=== PATIENT | female | born 1955 | race Caucasian/White ===

== ENCOUNTER 2021-05-23 09:27 | Outpatient (REF) | payer MEDICARE, MEDICAID, SELFPAY ==
--- NOTE | ~2021-05-23 | XR_ITS ---
EXAMINATION: XR SHOULDER, RIGHT CLINICAL INFORMATION: Pain COMPARISON: None TECHNIQUE: Three views of the right shoulder. FINDINGS: Bone alignment is normal. No fracture or dislocation is seen. The glenohumeral joint is normal. There is mild arthritis at the acromioclavicular joint. Soft tissues are normal. XR/XR shoulder RT min 2V IMPRESSION: Mild arthritis at the acromioclavicular joint.
== END 2021-05-23 09:28 | disposition home or self-care (01) ==
LOC: HO.XRAY 09:27
PROVIDERS: Absent Provider Internal Medicine Geriatric Medicine; PCP Internal Medicine Geriatric Medicine; Visit Provider Emergency Medicine
DX: M25.511 Pain in right shoulder (principal)
CPT/HCPCS: 73030

== ENCOUNTER 2022-05-29 11:58 | Outpatient (REF) | payer MEDICARE, MEDICAID, SELFPAY ==
--- NOTE | ~2022-05-29 | MM_ITS ---
EXAMINATION: MM SCREENING DIGITAL BREAST TOMOSYNTHESIS, BILATERAL CLINICAL INFORMATION: Screening. Asymptomatic. The lifetime risk of breast cancer based on the Tyrer-Cuzick Model is 4%. COMPARISON: Mammography: 04/16/2019, 11/09/2015 TECHNIQUE: Digital breast tomosynthesis is performed in both the craniocaudal and mediolateral oblique views along with computer-aided detection (CAD). Synthesized 2D images are generated from the tomosynthesis. FINDINGS: The breasts are heterogeneously dense, which may obscure small masses (ACR BI-RADS breast composition Category c). There are no significant masses, abnormal calcifications, or other abnormalities. Parenchymal pattern is similar to prior studies. There is no developing density or architectural abnormality. The axilla and skin contours are unremarkable. No significant changes. MM/MM tomosynthesis screening BI IMPRESSION: No mammographic evidence of malignancy. ASSESSMENT: BI-RADS 1: Negative RECOMMENDATION: Routine annual mammography screening. This patient's information was entered into a reminder system with a target due date for their next mammogram.
== END 2022-05-29 11:59 | disposition home or self-care (01) ==
LOC: HO.MAMMO 11:58
PROVIDERS: PCP Internal Medicine Geriatric Medicine; Visit Provider Internal Medicine Geriatric Medicine
DX: Z12.31 Encounter for screening mammogram for malignant neoplasm of breast (principal)
CPT/HCPCS: 77063; 77067

== ENCOUNTER 2023-07-15 11:23 | Outpatient (REF) | payer MEDICARE, MEDICAID, SELFPAY ==
[2023-07-15 14:08] LABS: Alanine Aminotransferase 21 U/L (0-31); Albumin Level 4.4 g/dL (3.5-5.0); Alkaline Phosphatase 92 U/L (39-117); Anion Gap 14 (12-20); Aspartate Amino Transferase 29 U/L (5-31); Bilirubin Direct 0.2 mg/dL (0.0-0.5); Bilirubin Total 0.4 mg/dL (0.0-1.0); Blood Urea Nitrogen 10 mg/dL (9-16); Calcium 9.8 mg/dL (8.4-10.2); Carbon Dioxide 26 mmol/L (22-29); Chloride 107 mmol/L (96-108); Cholesterol 161 mg/dL (<200); Estimated Glomerular Filt Rate > 60; Glucose Random 126 mg/dL (60-115); HDL Cholesterol 52 mg/dL (>40); LDL Cholesterol Calculated 92 mg/dL (<100); Potassium 3.8 mmol/L (3.3-5.1); Sodium 143 mmol/L (135-145); Triglycerides 87 mg/dL (<150)
[2023-07-15 14:26] LABS: Vitamin D 25-OH Total 28.3 ng/mL (>30)
== END 2023-07-15 11:24 | disposition home or self-care (01) ==
LOC: HO.HHCL 11:23
PROVIDERS: Visit Provider Internal Medicine Geriatric Medicine
DX: E55.9 Vitamin D deficiency, unspecified (principal); I10 Essential (primary) hypertension; E78.2 Mixed hyperlipidemia
CPT/HCPCS: 36415; 80048; 80061; 80076; 82306

== ENCOUNTER 2023-09-10 18:20 | Outpatient (REF) | payer MEDICARE, MEDICAID, SELFPAY ==
[2023-09-10 20:14] LABS: Influenza A PCR NEGATIVE (Negative); Influenza B PCR NEGATIVE (Negative); Resp Syncy Virus RNA Qual PCR NEGATIVE (Negative); SARS COV2 PCR INHOUSE NEGATIVE (Negative)
== END 2023-09-10 18:21 | disposition home or self-care (01) ==
LOC: HO.HHCLNP 18:20
PROVIDERS: Visit Provider Emergency Medicine
DX: Z11.52 Encounter for screening for COVID-19 (principal); R68.89 Other general symptoms and signs; Z20.822 Contact with and (suspected) exposure to COVID-19
CPT/HCPCS: 0241U; 87070

== ENCOUNTER 2024-01-01 10:47 | Outpatient (REF) | payer MEDICARE, MEDICAID, SELFPAY ==
[2024-01-01 13:29] LABS: Anion Gap 13 (12-20); Blood Urea Nitrogen 16 mg/dL (9-16); Carbon Dioxide 28 mmol/L (22-29); Chloride 104 mmol/L (96-108); Estimated Glomerular Filt Rate > 60; Glucose Random 117 mg/dL (60-115); Potassium 4.2 mmol/L (3.3-5.1); Sodium 141 mmol/L (135-145)
[2024-01-01 14:09] LABS: Creatinine Urine 34.64 mg/dL; Microalbumin Urine < 5.0 mg/L
== END 2024-01-01 10:48 | disposition home or self-care (01) ==
LOC: HO.HHCL 10:47
PROVIDERS: Visit Provider Internal Medicine Geriatric Medicine
DX: E11.65 Type 2 diabetes mellitus with hyperglycemia (principal); I10 Essential (primary) hypertension
CPT/HCPCS: 36415; 80048; 82043; 82570

== ENCOUNTER 2024-05-11 08:25 | Outpatient (REF) | payer MEDICARE, MEDICAID, SELFPAY ==
[2024-05-12 04:06] LABS: ~HepC Num1 0.07 S/CO (0.00-0.79); ~Hepatitis C Antibody Nonreactive (Nonreactive)
== END 2024-05-11 08:26 | disposition home or self-care (01) ==
LOC: HO.HHCL 08:25
PROVIDERS: Visit Provider Internal Medicine Geriatric Medicine
DX: Z11.59 Encounter for screening for other viral diseases (principal)
CPT/HCPCS: 36415; 86803

== ENCOUNTER 2024-06-29 17:53 | Outpatient (REF) | payer MEDICARE, MEDICAID, SELFPAY | END 2024-06-29 17:54 | disposition home or self-care (01) | LOC: HO.HHCLNP 17:53 | PROVIDERS: Visit Provider Emergency Medicine | DX: L03.012 Cellulitis of left finger (principal) | CPT/HCPCS: 87070; 87077; 87147; 87186; 87205 ==

== ENCOUNTER 2025-01-01 09:13 | Outpatient (REF) | payer MEDICARE, MEDICAID, SELFPAY ==
--- OUTSIDE RECORDS SUMMARY | 2025-01-01 09:16 | XMS_ITS | Encounter Summary ---
Author Organization [employer] Address [address] [place] [address] Care Team Providers Care Bottom Loader Name Role Phone Name, Shekhar ROSE Primary Care Provider [phone] Nadine Almazan PharmD Unavailable [phone] Reason for Visit * Reason Comments Pre-visit Planning SDOH unable to reach LVM Encounter Details Date Type Department Care Team ([facility] st Contact Info) Description 12/17/2024 Patient Outreach [facility] [address] [place], [place] [id number] Name, MD Shekhar [address] [place] [address] Pre-visit Planning (SDOH unable to reach LVM ) Social History Tobacco Use Types Packs/Day Years Used Date Smoking Tobacco: Never Passive Smoke Exposure: Never Smokeless Tobacco: Never Alcohol Use Standard Drinks/Week Comments Never 0 (1 standard drink = 0.6 oz pur e alcohol) Alcohol Answer Date Recorded Frequency of Alcohol Consumption Not on file 04/15/2024 Average Number of Drinks Not on file 024 Frequency of Binge Drinking Not on file 03/28 Score 0 04/15/2024 Depression Answer Date Recorded Patient Health Questionnaire-9 Score 0 07/15/2023 Housing Stability Answer Date Recorded What is your housing situation today? I have jaylene roy 08/22/[address] you li ve. Do you have problems with any of the following? None of the above 08/22/2023 Food Insecurity Answer Date Recorded Within the past 12 months, y ou worried that your food would run out before you got money to buy more: Never True 08/22/2023 Within the past 12 months,th e food you bought just didn't last and you didn't have enough money to get more: Never True Transportation Answer Date Recorded In the past 12 months, has l ack of transportation kept you from medical appts, meetings, work or from getting things needed for daily living? No 08/22/2023 Utilities Answer Date Recorded In the past 12 months, has t he electric, gas, oil or water company threatened to shut off services in your home? No 08/22/2023 Depression Answer Date Recorded Patient Health Questionnaire-2 Score 0 07/15/2023 Comments Unknown Sex and Gender Information Value Date Recorded Sex Assigned at Female 08/26/2022 10:17 AM EDT Legal Sex Female 10:17 AM EDT Gender Identity Female 08/26/2022 10:17 AM EDT Sexual Orientation Straight 08/26/2022 10 :17 AM EDT documented as of this encounter Progress Notes * Rylee Ordoñez - 12/17/2024 4:11 PM EST JOHANA Johnson placed outbound call to patient to complete pre-visit planning. No answer at this time. Patient name and were not confirmed. CC left voicemail requesting return call. Direct contactinformation provided. documented in this encounter Plan of Treatment Not on file documented as of this encounter Goals Goal Patient Goal Type Associated Problems Recent Progress Patient-Stated? Author Record your blood pressure periodically, as directed Blood Pressure Worsening(08/2023 1:29 PM EST) No Puia, Nadine, PharmD Blood Pressure < 140/90 Blood Pressure 126/79(2024 3:33 PM EST) No Puia, Nadine, PharmD Hemoglobin A1c < 7 Result Component 6.6( 3:22 PM EST) No Puia, Nadine, PharmD Record your blood sugar as directed Result Component Worsening(08/2023 1:29 PM EST) No Puia, Nadine, PharmD documented as of this encounter Visit Diagnoses Not on filedocumented in this encounter Additional Health Concerns Assessment Noted Time PHQ-9 Depression Total Score: 0 09/19/20 23 10:32 AM EDT documented as of this encounter Care Teams Bottom Loader Relationship Specialty Start Date End Date Name, MD Shekhar [address] [place] [address] PCP - General Family Medicine 08/12/18 Nadine Almazan PharmD [address] [place] [address] Pharmacist Internal Medicine 10/30/21 documented as of this encounter
--- OUTSIDE RECORDS SUMMARY | 2025-01-01 09:16 | XMS_ITS | Encounter Summary ---
Author Organization [employer] Address [address] [facility] [address] [place] [id number] Care Team Providers Care Coin Teller Name Role Phone Name, Shekhar ROSE Primary Care Provider [phone] Nadine Almazan PharmD Unavailable [phone] Encounter Details Date Type Department Care Team (Late st Contact Info) Description 09/13/2022 Abstract [facility] [address] [place] [address] Provider, MD Anthony Social History Tobacco Use Types Packs/Day Years Used Date Smoking Tobacco: Never Assessed Comments Unknown Sex and Gender Information Value Date Recorded Sex Assigned at Female 08/26/2022 10:17 AM EDT Legal Sex Female 10:17 AM EDT Gender Identity Female 08/26/2022 10:17 AM EDT Sexual Orientation Straight 08/26/2022 10 :17 AM EDT documented as of this encounter Plan of Treatment Not on file documented as of this encounter Visit Diagnoses Not on filedocumented in this encounter Care Teams Coin Teller Relationship Specialty Start Date End Date Name, MD Shekhar [address] [place] [address] PCP - General Family Medicine 08/12/18 Nadine Almazan, PharmD [address] [place] [address] Pharmacist Internal Medicine 10/30/21 documented as of this encounter
--- OUTSIDE RECORDS SUMMARY | 2025-01-01 09:16 | XMS_ITS | Encounter Summary ---
Author Organization [employer] Address [address] [place] [address] Care Team Providers Care Chart Snatcher Name Role Phone Name, Shekhar ROSE Primary Care Provider [phone] Nadine Almazan PharmD Unavailable [phone] Encounter Details Date Type Department Care Team ([facility] st Contact Info) Description 12/29/2024 Telephone [facility] [address] [place] [address] Kelly Clements, RN Social History Tobacco Use Types Packs/Day Years [...] AM EDT documented as of this encounter Miscellaneous Notes * Telephone Encounter - Kelly Clements RN - 12/29/2024 10:33 AM EST Tc to [facility] per PCP Patient came with her daughter that is one of our [facility]. She has difficultieswalking due to knee pain. Her daughter tells me that patient sometimes needs help with dressing andwith work around the house. Patient is interested in applying for MANAGER RADIO services at home to have somehelp around the house. Can you please call [employer] at to see if they can do evaluation? No answer, lvm to return call and ask to speak to [place] team nurses. * Telephone Encounter - Kelly Clements RN - 12/29/2024 10:33 AM EST ----- Message from Shekhar Rhodes MD sent at 12/28/2024 5:20 PM EST ----- Patient came with her daughter that is one of our [facility]. She has difficulties walking due to knee pain. Her daughter tells me that patient sometimes needs help with dressing and with work around the house. Patient is interested in applying for MANAGER RADIO services at home to have some help around the house. Can you please call [employer] at to see if they can do evaluation? documented in this encounter Plan of Treatment [...] Noted Time PHQ-9 Depression Total Score: 0 07/15/20 23 10:32 AM EDT documented as of this encounter Care Teams Chart Snatcher Relationship Specialty Start Date End Date Name, MD Shekhar [address] [place] [address] PCP - General Family Medicine 08/12/18 Nadine Almazan, PharmD [address] [place] [address] Pharmacist Internal Medicine 10/30/21 documented as of this encounter
--- OUTSIDE RECORDS SUMMARY | 2025-01-01 09:16 | XMS_ITS | Encounter Summary ---
Author Organization [employer] Address [address] [facility] [address]t [place] [address] Care Team Providers Care Punch Press Operator Helper Name Role Phone Name, Shekhar ROSE Primary Care Provider [phone] Nadine Almazan PharmD Unavailable [phone] Reason for Referral * Imaging (Routine) - Authorized Specialty Diagnoses / Procedures Referred By Contac t Referred To Contact Radiology Diagnoses Encounter for screening mammogram for malignant neoplasm of breast Procedures BI Mammogram Screening Tomosynthesis Bilateral NameShekhar MD [address] [place] [address] Phone: tel: fax: [address] Phone: tel: fax: Referral ID Status Reason Start Date Expiration Date V isits Requested Visits Authorized [id number] Authorized 12/28/2024 12/28/2025 1 1 Reason for Visit * Reason Comments Diabetes Encounter Details Date Type Department Care Team (Late st Contact Info) Description 12/28/2024 3:15 PM EST Office Visit [facility] [address] [place] [phone] Shekhar Rhodes MD [address] [place], [place] [phone] Hypertension, unspecified type (Primary Dx); Type 2 diabetes mellitus with hyperglycemia, without long-term current use of insulin ([facility]/HCC); Herpes labialis; Chronic knee pain, unspecified laterality; Encounter for screening mammogram for malignant neoplasm of breast; Encounter for immunization Social History Tobacco Use Types Packs/Day Years Used Date Smoking Tobacco: Never Passive Smoke Exposure: Never Smokeless Tobacco: Never Tobacco Cessation:Counseling Given: Not Answered Alcohol Use Standard Drinks/Week Comments Never 0 [...] your housing situation today? I have jaylene kirill 08/22/[address] you li [...] AM EDT documented as of this encounter Last Filed Vital Signs Vital Sign Reading Time Taken Comments Blood Pressure 126/79 12/28/2024 3:33 PM EST Pulse 82 12/28/2024 3:19 PM EST Temperature 36.7 ??C (98.1 ??F) 12/28/2024 3:19 PM ES T Respiratory Rate 14 12/28/2024 3:19 PM EST Oxygen Saturation 98% 12/28/2024 3:19 PM EST Inhaled Oxygen Concentration - - Weight 69.5 kg (153 lb 3.2 oz) 12/28/2024 3:19 P M EST Height 157.5 cm (5' 2 ) 12/28/2024 3:19 PM EST Body Mass Index 28.02 12/28/2024 3:19 PM EST documented in this encounter Progress Notes * Shekhar Rhodes MD - 12/28/2024 3:15 PM EST Subjective Patient ID: Carmen Rehman is a 69 y.o. female who presents for Diabetes. Patient comes for a follow-up visit. She is accompanied by her daughter. She is asymptomatic. She tells me she has been using her medications regularly. She continues to have a liberal diet. Today BPwas initially elevated but repeat BP was much better. She does not bring her glucose meter but blood sugar has improved based on her hemoglobin A1c today of 6.6. She has difficulties walking due to knee pain. She tells me she was diagnosed with knee osteoarthritis in the past. Her daughter tells me that patient sometimes needs help with dressing and with workaround the house. Patient is interested in applying for MATH TEACHER services at home to have some help around the house. Review of Systems Constitutional: Negative for chills and fever. HENT: Negative for sore throat. Respiratory: Negative for cough, shortness of breath and wheezing. Cardiovascular: Negative for chest pain, palpitations and leg swelling. Gastrointestinal: Negative for abdominal pain. 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 This is a recurrent problem for her for many years. She has requested prescription for acyclovir to have at home if needed for recurrent labial herpes outbreak. The patient's lips are normal by the time of her visit today. Visit Vitals BP 126/79 Pulse 82 Temp 98.1 ??F (36.7 ??C) (Temporal) Resp 14 Ht 5' 2 (1.575 m) Wt 153 lb 3.2 oz (69.5 kg) SpO2 98% BMI 28.02 kg/m?? Smoking Status Never BSA 1.74 m?? Objective Physical Exam Constitutional: Appearance: Normal appearance. Cardiovascular: Rate and Rhythm: Normal rate and regular rhythm. Heart sounds: No murmur heard. No gallop. Pulmonary: Effort: Pulmonary effort is normal. No respiratory distress. Breath sounds: Normal breath sounds. No wheezing. Musculoskeletal: Right lower leg: No edema. Left lower leg: No edema. Comments: Antalgic gait Neurological: Mental Status: She is alert. Assessment/Plan Diagnoses and all orders for this visit: Hypertension, unspecified type Comments: Continue current dose of losartan and amlodipine. Check fasting blood work listed below. Orders: - Comprehensive Metabolic Panel; Future - Lipid Panel, Standard; Future - Albumin, Random Urine W/Creatinine; Future Type 2 diabetes mellitus with hyperglycemia, without long-term current use of insulin ([facility]) Comments: Continue current dose of Farxiga, check fasting blood work. She is reminded to avoid sweets and soda. She is encouraged to walk after meals. Orders: - POCT Glucose - POCT HGB A1C - Comprehensive Metabolic Panel; Future - Lipid Panel, Standard; Future - Albumin, Random Urine W/Creatinine; Future Herpes labialis Comments: She was prescribed acyclovir to use as needed at the first time of labial herpes outbreak. Orders: - Comprehensive Metabolic Panel; Future - Lipid Panel, Standard; Future - Albumin, Random Urine W/Creatinine; Future Chronic knee pain, unspecified laterality Comments: I suspect secondary to DJD. I recommended acetaminophen as needed check x-rays. I will message teamnurses to see if we can get some hours of MATH TEACHER help at home for her. Orders: - XR Knee 4+ Views Right; Future - XR Knee 4+ Views Left; Future Encounter for screening mammogram for malignant neoplasm of breast - BI Mammogram Screening Tomosynthesis Bilateral; Future Encounter for immunization - PCV-20 VACCINE 6 wks + Other orders - acyclovir (Zovirax) 400 MG tablet; Take 1 tablet (400 mg) by mouth 3 times daily for 10 days. documented in this encounter Plan of Treatment Scheduled Orders Name Type Priority Associated Diagnoses Orde r Schedule Comprehensive Metabolic Panel Lab Routine Type 2 diabetes mellitus with hyperglycemia, without long-term current use of insulin ([facility]) Hypertension, unspecified type Herpes labialis Expected: 12/28/2024 (Approximate), Expires: 12/28/2025 Lipid Panel, Standard Lab Routine Type 2 diabetes mellitus with hyperglycemia, without long-term current use of insulin ([facility]) Hypertension, unspecified type Herpes labialis Expected: 12/28/2024 (Approximate), Expires: 12/28/2025 Albumin, Random Urine W/Creatinine Lab Routine Type 2 diabetes mellitus with hyperglycemia, without long-term current use of insulin ([facility]) Hypertension, unspecified type Herpes labialis Expected: 12/28/2024 (Approximate), Expires: 12/28/2025 BI Mammogram Screening Tomosynthesis Bilateral Imaging Routine Encounter for screening mammogram for malignant neoplasm of breast Expected: 12/28/2024, Expires: 02/27/2026 XR Knee 4+ Views Right Imaging Routine Chronic knee pain, unspecified laterality Expected: 12/28/2024, Expires: 12/28/2025 XR Knee 4+ Views Left Imaging Routine Chronic knee pain, unspecified laterality Expected: 12/28/2024, Expires: 12/28/2025 documented as of this encounter Goals Goal Patient Goal Type Associated Problems Recent Progress Patient-Stated? Author Record your blood pressure periodically, as directed Blood Pressure Worsening(08/2023 1:29 PM EST) No Nadine Almazan, PharmD Blood Pressure < 140/90 Blood Pressure 126/79(2024 3:33 PM EST) No Nadine Almazan, PharmD Hemoglobin A1c < 7 Result Component 6.6( 3:22 PM EST) No Nadine Almazan, PharmD Record your blood sugar as directed Result Component Worsening(08/2023 1:29 PM EST) No Kevon Almazanyssa, PharmD documented as of this encounter Procedures Procedure Name Priority Date/Time Associated Diagnosis Comments POCT GLYCATED HEMOGLOBIN, TOTAL Routine 12/28/2024 3:22 PM EST Type 2 diabetes mellitus with hyperglycemia, without long-term current use of insulin ([facility]) POCT GLUCOSE Routine 12/28/2024 3:21 PM EST Type 2 diabetes mellitus with hyperglycemia, without long-term current use of insulin ([facility]) documented in this encounter Results * (ABNORMAL) POCT HGB A1C (12/28/2024 3:22 PM EST) Hemoglobin A1C 6.6(A) 4.0 - 6.0 % QC Media Lot # [id number] Lot# Expiration Date [id number] Blood 12/28/2024 3:22 PM EST us Shekhar Rhodes MD POINT OF CARE TEST ENTER/EDIT OR DERABLES Final Result * POCT Glucose (12/28/2024 3:21 PM EST) Glucose Blood, POC 139 60 - 200 mg/dL QC Media Lot # [id number] Lot# Expiration Date [id number] Blood Capillary blood specimen / Unknown 12/28/2024 3:21 PM EST us Shekhar Rhodes MD POINT OF CARE TEST ENTER/EDIT OR DERABLES Final Result documented in this encounter Visit Diagnoses Diagnosis Hypertension, unspecified type- Primary Type 2 diabetes mellitus with hyperglycemia, without long-term current use of insulin ([facility]) Herpes labialis Herpes simplex without mention of complication Chronic knee pain, unspecified laterality Encounter for screening mammogram for malignant neoplasm of breast Encounter for immunization documented in this encounter Additional Health Concerns Assessment Noted Time PHQ-9 Depression Total Score: 0 07/15/20 23 10:32 AM EDT documented as of this encounter Care Teams Punch Press Operator Helper Relationship Specialty Start Date End Date Name, MD Shekhar [address] [place] [id number] PCP - General Family Medicine 08/12/18 Nadine Almazan PharmD [address] [place] [address] Pharmacist Internal Medicine 10/30/21 documented as of this encounter
--- OUTSIDE RECORDS SUMMARY | 2025-01-01 09:16 | XMS_ITS | Encounter Summary ---
Author Organization [employer] Address [address] [place] [address] Care Team Providers Care Exotic Dancer Name Role Phone Name, Shekhar ROSE Primary Care Provider Nadine Almazan PharmD Unavailable [phone] Reason for Visit * Reason Onset Date Comments triage 03/17/2023 Encounter Details Date Type Department Care Team ([facility] st Contact Info) Description 03/17/2023 Telephone [facility] [address] [place], [place] [phone] Name, MD Shekhar [address] [place] [address] triage Social History Tobacco Use Types Packs/Day Years Used Date Smoking Tobacco: Never Assessed Comments Unknown Sex and Gender Information Value Date Recorded Sex Assigned at Female 08/26/2022 10:17 AM EDT Legal Sex Female 10:17 AM EDT Gender Identity Female 08/26/2022 10:17 AM EDT Sexual Orientation Straight 08/26/2022 10 :17 AM EDT COVID-19 Exposure Response Date Recorded In the last 10 days, have yo u been in contact with someone who was confirmed or suspected to have Coronavirus/COVID-19? No / Unsure 03/17/2023 1:43 PM EDT documented as of this encounter Miscellaneous Notes * Telephone Encounter - Jazmine Rodriguez RN - 03/17/2023 1:43 PM EDT Triage call with [employer] [place] [id number] Pt reports upper lip has some swelling and blisters have developed which are almost up to the nose and on the sides of lip. Pt reports this started 03/16 with sneezing and wiping of nose due to allergies. Pt has had this before and was treated with good effect. Pt is advised to come to [facility] today to be seen and Pt agrees with disposition and home care reviewed. Protocol Used: Mouth Symptoms (Adult) Protocol-Based Disposition: See in Office or Video Visit within 3 Days Video visit not offered Positive Triage Question: * Patient wants to be seen * All higher-acuity triage questions were negative Care Advice Discussed: * Reassurance and Education - Chapped Lips * Chapped Lips - Causes * Chapped Lips - Treatment and Prevention * Expected Course * Reasons To Call Back - You become worse * Telephone Encounter - Amando Ordoñez - 03/17/2023 12:49 PM EDT Symptoms: Lip Swelling, Cough Outcome: Schedule an urgent appointment (within 4 hours) or talk to a nurse or provider soon Reason: Getting worse The caller accepted this outcome documented in this encounter Plan of Treatment Not on file documented as of this encounter Visit Diagnoses Not on filedocumented in this encounter Care Teams Exotic Dancer Relationship Specialty Start Date End Date Name, MD Shekhar [address] [place] [address] PCP - General Family Medicine 08/12/18 Nadine Almazan PharmD [address] [place] [address] Pharmacist Internal Medicine 10/30/21 documented as of this encounter
--- OUTSIDE RECORDS SUMMARY | 2025-01-01 09:17 | XMS_ITS | Encounter Summary ---
Author Organization [employer] Address [address] [facility] [address] [place] [address] Care Team Providers Care Utility Repairer Name Role Phone Name, Shekhar ROSE Primary Care Provider [phone] Nadine Almazan PharmD Unavailable [phone] Encounter Details Date Type Department Care Team ([facility] st Contact Info) Description 12/29/2024 Telephone [facility] [address] [place] [address] Kelly Clements, RN Social History Tobacco Use [...] Encounter - Kelly Clements RN - 12/29/2024 9:24 AM EST Tc to Jj per PCP Patient came with her daughter that is one of our [facility]. She has difficultieswalking due to knee pain. Her daughter tells me that patient sometimes needs help with dressing andwith work around the house. Patient is interested in applying for INCIDENT COMMANDER services at home to have somehelp around the house. Can you please call [employer] at to see if they can do evaluation? . No answer, lvm to return call and ask to speak to goleta team nurses. * Telephone Encounter - Kelly Clements RN - 12/29/2024 9:24 AM EST ----- Message from Shekhar Rhodes MD sent at 12/28/2024 5:20 PM EST ----- Patient came with her daughter that is one of our [employer] [facility]. She has difficulties walking due to knee pain. Her daughter tells me that patient sometimes needs help with dressing and with work around the house. Patient is interested in applying for INCIDENT COMMANDER services at home to have some help around the house. Can you please call [employer] at to see if they can do [...] Result Component Worsening(08/2023 1:29 PM EST) No PuiaKevonNadine, PharmD documented as of this encounter Visit Diagnoses Not on filedocumented in this encounter Additional Health Concerns Assessment Noted Time PHQ-9 Depression Total Score: 0 07/15/20 23 10:32 AM EDT documented as of this encounter Care Teams Utility Repairer Relationship Specialty Start Date End Date Name, MD Shekhar [address] [place] [address] PCP - General Family Medicine 08/12/18 Nadine Almazan, PharmD [address] [place] [address] Pharmacist Internal Medicine 10/30/21 documented as of this encounter
--- OUTSIDE RECORDS SUMMARY | 2025-01-01 09:17 | XMS_ITS | Encounter Summary ---
Author Organization [email or web address] Address 75 [facility] 7t [place] [address] Care Team Providers Care Brake Lining Curer Name Role Phone Name, Shekhar ROSE Primary Care Provider [phone] Nadine Almazan PharmD Unavailable [phone] Encounter Details Date Type Department Care Team (Late st Contact Info) Description 03/27/2023 Abstract [facility] MED[facility]INE [address] [place] [address] Name, MD Shekhar [address] [place] [address] Social History Tobacco Use Types Packs/Day Years [...] was confirmed or suspected to have Coronavirus/COVID-19? Unable to assess 03/28/2023 3:18 PM EDT documented as of this encounter Plan of Treatment Not on file documented as of this encounter Goals Goal Patient Goal Type Associated Problems Recent Progress Patient-Stated? Author Record your blood pressure periodically, as directed Blood Pressure Worsening(09/26 1:29 PM EST) No Puia, Nadine, PharmD documented as of this encounter Procedures Procedure Name Priority Date/Time Associated Diagnosis Comments COLONOSCOPY Routine 12/14/2019 3:35 PM EST documented in this encounter Results * Hm Colonoscopy (12/14/2019 3:35 PM EST) Colonoscopy Normal Normal Narrative Anu Del Cid - 12/14/2019 3:35 PM EST Recommend 3 year follow up us Historical Provider HEALTH MAINTENANCE Final Result documented in this encounter Visit Diagnoses Not on filedocumented in this encounter Care Teams Brake Lining Curer Relationship Specialty Start Date End Date Name, MD Shekhar [address] [place], [place] [phone] PCP - General Family Medicine 08/12/18 Nadine Almazan PharmD [address] [place] [address] Pharmacist Internal Medicine 10/30/21 documented as of this encounter
--- OUTSIDE RECORDS SUMMARY | 2025-01-01 09:17 | XMS_ITS | Clinical Summary ---
Author Organization [employer] Address 75 [facility] 7t [place] [address] Care Team Providers Care Petroleum Refinery Worker Name Role Phone Name, Shekhar ROSE Primary Care Provider [phone] Nadine Almazan PharmD Unavailable [phone] Allergies Active Allergy Reactions Criticality Noted Date Comments Latex Rash Low 01/28/2024 Metformin Abdominal Pain 04/15/2024 Penicillin V Other reaction(s): unspecified Medications Blood Glucose Monitoring Suppl (FreeStyle Lite) deviceIndication s:Diabetes mellitus type 2 in obese Inject 1 each under the skin Once daily. Use to test blood sugar once daily as directed 1 each 3 Active Blood Pressure Monitor kitIndications:H ypertension, unspecified type Use to check blood pressure daily 1 kit 3 Active Ventolin HFA 108 (90 Base) MCG/ACT inhalerIndicatio ns:Intermittent asthma without complication, unspecified asthma severity TAKE 2 PUFFS BY MOUTH EVERY 4 TO 6 HOURS NEEDED 18 g 2 3 Active Spacer/Aero-Hold ing Chambers (OptiChamber Grace) misc 1 each every 4 (four) hours if needed (asthma). 1 each 3 Active Diclofenac Sodium (Voltaren) 1 % gelIndications:T ype 2 diabetes mellitus with hyperglycemia, without long-term current use of insulin ([facility]) Apply once a day to the affected foot 100 g 2 3 Active fluticasone (Flonase) 50 MCG/ACT nasal spray USE 1 SPRAY IN EACH NOSTRIL DAILY SHAKE GENTLY 16 g 2 4 Active losartan (Cozaar) 25 MG tabletIndication s:Type 2 diabetes mellitus with hyperglycemia, without long-term current use of insulin ([facility]),Hypert ension, unspecified type Take 1 tablet (25 mg) by mouth in the morning. 30 tablet 11 4 Active amLODIPine (Norvasc) 5 MG tabletIndication s:Hypertension, unspecified type Take 1 tablet (5 mg) by mouth at bedtime. 30 tablet 11 4 Active dapagliflozin (Farxiga) 10 MG Take 1 tablet (10 mg) by mouth Once per day. 30 tablet 11 4 04/15/20 25 Active cholecalciferol (Vitamin D-3) 25 MCG tabletIndication s:Vitamin D deficiency TAKE 1 TABLET BY MOUTH AT BEDTIME 90 tablet 3 4 Active cetirizine (ZyrTEC) 10 MG tabletIndication s:Seasonal allergic rhinitis due to pollen TAKE 1 TABLET BY MOUTH AT BEDTIME 90 tablet 3 4 Active Easy Touch Lancets 33G/Twist misc USE DIRECTED TO TEST BLOOD SUGAR ONCE DAILY 100 each 11 4 Active FREESTYLE LITE test strip USE DIRECTED TO TEST BLOOD SUGAR ONCE DAILY 50 strip 11 4 Active Acetaminophen 500 MG capsuleIndicatio ns:Acute non intractable tension-type headache Take two tablets as needed for fever or pain every 6 hours 40 capsule 4 Active atorvastatin (Lipitor) 20 MG tablet TAKE 1 TABLET BY MOUTH AT BEDTIME 30 tablet 11 4 Active acyclovir (Zovirax) 400 MG tablet Take 1 tablet (400 mg) by mouth 3 times daily for 10 days. 30 tablet 2 5 01/08/20 25 Active Active Problems Problem Noted Date Diagnosed Date Herpes labialis 12/28/2024 Type 2 diabetes mellitus, wi thout long-term current use of insulin 03/09/2019 Vitamin D deficiency 02/22/2019 Asthma 11/17/2018 Hypertensive disorder 09/14/2018 Knee pain 08/12/2018 Hyperlipidemia 08/07/2012 Allergic rhinitis 08/07/2012 Gastroesophageal reflux disease 08/07/2012 Encounters Date Type Department Care Team Description 12/29/2024 Telephone [facility] [address] [place] [phone] Kelly Clements, JACKIE 12/29/2024 Telephone [facility] [address] [place] [phone] Kelly Clements RN 12/28/2024 3:15 PM EST Office Visit [address] [address] Shekhar Rhodes MD Hypertension, unspecified type (Primary Dx); Type 2 diabetes mellitus with hyperglycemia, without long-term current use of insulin ([facility]); Herpes labialis; Chronic knee pain, unspecified laterality; Encounter for screening mammogram for malignant neoplasm of breast; Encounter for immunization 12/17/2024 Patient Outreach [facility] [address] [place], [place] [phone] Shekhar Rhodes MD Pre-visit Planning ([facility] unable to reach [facility] ) 10/28/2024 Telephone [facility] [address] [place] [address] Judi Valle [place] Chart Prep 10/08/2024 Patient Outreach [address] [address] Shekhar Rhodes MD Medicare Annual Wellness Visit Initial (AWV unscheduled) from Last 3 Months Immunizations Name Administration Dates Next Due Hep B, adult 02/24/2024(Deferred: Patient Ref used) Influenza High-dose Quadriva lent Preservative Free 07/23/2023,09/05/2022 Influenza, High Dose Seasona l, Preservative Free 11/08/2019 Influenza, IIV3, injectable 08/15/2011 Influenza, Split (incl. kristopher fied surface antigen) 07/01/2013,08/07/2012 Pfizer Covid-19 Vaccine 12+ 10/01/2023,,07/04/2021 Pfizer Covid-19 Vaccine 12+ Bivalent 09/05/2022 Pneumococcal Conjugate PCV 13 11/08/2019 Pneumococcal Conjugate PCV 20 12/28/2024 Pneumococcal Polysaccharide PPSV23 01/28/2017 RSV Bivalent 02/24/2024(Deferred: Patient Ref used) TD (adult), 2 Lf tetanus tox oid, preservative free, adsorbed 05/12/2007 Tdap 06/25/2023,06/18/2013,11/04/2012 Family History Medical History Relation Name Comments Hyperlipidemia Mother Hypertension Mother Relation Name Status Comments Mother Social History Tobacco Use Types Packs/Day Years [...] Orientation Straight 08/26/2022 10 :17 AM EDT Last Filed Vital Signs Vital Sign Reading [...] Mass Index 28.02 12/28/2024 3:19 PM EST Plan of Treatment Health Maintenance Due Date Last Done Comments CT Colonography 1953 Dental Prophylaxis 1955 FIT DNA/Cologuard 1955 FIT 1955 FOBT 1955 Sigmoidoscopy 1955 Zoster Vaccines (1 of 2) 2003 RSV Patients and Patients Aged 60 years or older (1 - Risk 60-74 years 1-dose series) 2013 Colonoscopy 12/14/2022 12/14/2019 Colorectal Cancer Screening 12/14/2022 Mammogram 05/29/2024 05/29/2022, 04/20/2019 COVID-19 Vaccine ( season) 2024 10/01/2023, 09/05/2022, 07/25/2021, Additional history exists Influenza Vaccine (#1) 2024 , 09/05/2022, 11/08/2019, Additional history exists Depression Screening 07/15/2024 07/15/2023, 07/15/20 23 Lipid Panel 07/15/2024 07/15/2023, 08/28, 05/15/2022 SDOH Screening 07/15/2024 07/15/2023 Dental Oral Exam 07/30/2024 01/28/2024, 08/19/2018 Diabetes: Foot Exam 09/29/2024 09/29/2023, 09/29/2023, 09/29/2023, Additional history exists Diabetes: Urine Protein Screening 12/31/2024 01/01/2024, 11/20/2019 Dental X-Ray: Bitewings 01/28/2025 01/28/2024, 08/19 Alcohol/Substance Use Screening 04/15/2025 04/15/2024 Diabetes: Hemoglobin A1C 06/30/2025 025, 04/15/2024, 01/01/2024, Additional history exists Eye Exam 08/28/2025 08/28/2023, 11/2022, 08/28/2023, Additional history exists Tobacco Screening 12/28/2025 12/28/2024 Dental X-Ray: Full Mouth 01/28/2027 024, 06/17/2022, 08/19/2018 DTaP/Tdap/Td Vaccines (4 - Td or Tdap) 06/25/2033 06/25/2023, 06/18/2013, 11/04/2012, Additional history exists Hepatitis C Screening Completed 05/11/2024 Pneumococcal Vaccine: 50+ Years Completed 12/28/2024, 11/08/2019, 01/28/2017 HIB Vaccines Aged Out No longer eligi ble based on patient's age to complete this topic HPV Vaccines Aged Out No longer eligi ble based on patient's age to complete this topic Hepatitis A Vaccines Aged Out No long er eligible based on patient's age to complete this topic Hepatitis B Vaccines Aged Out No long er eligible based on patient's age to complete this topic IPV Vaccines Aged Out No longer eligi ble based on patient's age to complete this topic Meningococcal Vaccine Aged Out No stan janeth eligible based on patient's age to complete this topic RSV under 20 months Aged Out No longe r eligible based on patient's age to complete this topic Rotavirus Vaccines Aged Out No longer eligible based on patient's age to complete this topic Goals Goal Patient Goal Type Associated Problems [...] 1:29 PM EST) No Puia, Nadine, PharmD Procedures Procedure Name Priority Date/Time Associated Diagnosis Comments POCT GLYCATED HEMOGLOBIN, TOTAL Routine 12/28/2024 3:22 PM EST Type 2 diabetes mellitus with hyperglycemia, without long-term current use of insulin (CMS/HCC) POCT GLUCOSE Routine 12/28/2024 3:21 PM EST Type 2 diabetes mellitus with hyperglycemia, without long-term current use of insulin (CMS/HCC) HEPATITIS C AB W/REFL TO HCV RNA, QN, PCR Routine 05/11/2024 8:27 AM EDT Need for hepatitis C screening test INTRAORAL - COMPLETE SERIES OF RADIOGRAPHIC IMAGES Routine 01/28/2024 11:30 AM EDT Symptomatic irreversible pulpitis Periodontal disease Dental caries PERIODIC ORAL EVALUATION - ESTABLISHED PATIENT Routine 01/28/2024 11:30 AM EDT Symptomatic irreversible pulpitis Periodontal disease Dental caries ALBUMIN, RANDOM URINE W/CREATININE Routine 01/01/2024 10:50 AM EST Type 2 diabetes mellitus with hyperglycemia, without long-term current use of insulin (CMS/[facility]) Hypertension, unspecified type LIPID PANEL, STANDARD Routine 07/15/2023 11:26 AM EDT MAMMOGRAM GENERIC Routine 05/29/2022 12: 18 PM EDT HM COLONOSCOPY Routine 12/14/2019 3:35 PM EST from Last 3 Months or Most Recently Relevant to Health Maintenance Results * (ABNORMAL) POCT HGB A1C (12/28/2024 3:22 PM EST) Hemoglobin A1C 6.6(A) 4.0 - 6.0 % QC Media Lot # [id number] Lot# Expiration Date [id number] Blood 12/28/2024 3:22 PM EST us Shekhar Name POINT OF CARE TEST ENTER/EDIT OR DERABLES Final Result * POCT Glucose (12/28/2024 3:21 PM EST) Glucose Blood, POC 139 60 - 200 mg/dL QC Media Lot # [id number] Lot# Expiration Date [id number] Blood Capillary blood specimen / Unknown 12/28/2024 3:21 PM EST Result Susan Rhodes MD POINT OF CARE TEST ENTER/EDIT OR DERABLES Final Result * Hepatitis C Antibody with Reflex to HCV, RNA, Quantitative, Real-Time PCR (05/11/2024 8:27 AM EDT) Pathologist [facility] Hepatitis C Antibody Nonreactive Nonreactive [facility] Comment:Antibodies to HCV no t detected; does not exclude early acuteHCV infection. Blood Venous blood specimen / Unknown 05/11/2024 8:27 AM EDT 05/11/2024 11:28 AM EDT us Shekhar Rhodes MD LAB BLOOD ORDERABLES Final Resul t Performing Organization Address City/[facility] Co de Phone Number [facility] [address] [place] [phone] * Albumin, Random Urine W/Creatinine (01/01/2024 10:50 AM EST) Pathologist [facility] Creatinine, Urine 34.64 mg/dL [facility] Microalbumin Urine <5.0 mg/L [facility] Microalbum Creatinine Ratio Ur TNP <30 ug/mg cr [facility] Comment:Unable to calculate albumin/creatinine ratio due to lowmicroalbumin or creatinine result. Urine (Urine, Random) 01/01/2024 10:50 AM EST 01/01/2024 12:56 PM EST us Shekhar Rhodes MD LAB URINE ORDERABLES Final Resul t Performing Organization Address City/[facility] Co de Phone Number [facility] [address] [place] [phone] * Lipid Panel, Standard (07/15/2023 11:26 AM EDT) Triglycerides 87 <150 mg/dL [facility] Comment:Desirable Triglyceri de: less than 150 mg/dLBorderline High Triglyceride 150-199 mg/dLHigh Triglyceride: 200-499 mg/dLVery High Triglyceride: greater than or equal to 5OO mg/dL Cholesterol 161 <200 mg/dL [facility] Comment:Desirable Cholestero l: less than 200 mg/dLBorderline High Cholesterol: 200-239 mg/dLHigh Cholesterol: greater than 239 mg/dL LDL Cholesterol Calculated 92 <100 mg/dL [facility] Comment:Desirable LDL: less than 100 mg/dLNear Optimal/Above Optimal LDL: 110- 129 mg/dLBorderline High LDL: 130-159 mg/dLHigh LDL: 160-189 mg/dLVery High LDL: greater than or equal to 190 mg/dL HDL Cholesterol 52 >40 mg/dL [facility] Comment:Desirable HDL: great er than 40 mg/dL Note: This HDL assay may give artificially low results in patients with liver disease. 07/15/2023 11:2 6 AM EDT 07/15/2023 1:27 PM EDT us Shekhar Rhodes MD LAB BLOOD ORDERABLES Final Resul t [facility] [address] [place] [phone] * Mammography Report 1 (05/29/2022 12:18 PM EDT) Anatomical Region Laterality Modality Breast Bilateral Mammography 05/29/2022 12:1 8 PM EDT Narrative 05/30/2022 1:27 PM EDT Refer to the Notes tab for result details [facility] Procedure: Mammography Report 1 Procedure Note Provider, MD Anthony - 01/19/2023 Refer to the Notes tab for result details [facility] Procedure: Mammography Report 1 us Shekhar Rhodes MD IMG BI PROCEDURES Final Result * Hm Colonoscopy (12/14/2019 3:35 PM EST) Colonoscopy Normal Normal Narrative Anu Del Cid - 12/14/2019 3:35 PM EST Recommend 3 year follow up us Historical Provider MD HEALTH MAINTENANCE Final Result from Last 3 Months or Most Recently Relevant to Health Maintenance Insurance MEDICARE [facility] STANDARD DENTAL-[facility] [address] MEDICAID STAND ADULT Care Teams Petroleum Refinery Worker Relationship Specialty Start Date End Date Name, MD Shekhar [address] [place] [address] PCP - General Family Medicine 08/12/18 Nadine Almazan PharmD [address] [place] [address] Pharmacist Internal Medicine 10/30/21
--- OUTSIDE RECORDS SUMMARY | 2025-01-01 09:17 | XMS_ITS | Encounter Summary ---
Author Organization [employer] Address 75 [facility] 7t [place] [address] Care Team Providers Care Clinic Specialist Name Role Phone Name, Shekhar ROSE Primary Care Provider [phone] PuNadine castañeda PharmD Unavailable [phone] Reason for Visit * Reason Comments Med Refill Encounter Details Date Type Department Care Team ([facility] st Contact Info) Description 05/26/2023 Refill [facility]INE [address] [place], [place] [phone] [facility] [address] [place] [address] Hyperlipidemia, unspecified hyperlipidemia type Social History Tobacco Use Types Packs/Day Years [...] documented as of this encounter Visit Diagnoses Diagnosis Hyperlipidemia, unspecified hyperlipidemia type documented in this encounter Care Teams Clinic Specialist Relationship Specialty Start Date End Date Name, MD Shekhar [address] [place] [address] PCP - General Family Medicine 08/12/18 Nadine Almazan, KimberlyD [address] [place] [phone] Pharmacist Internal Medicine 10/30/21 documented as of this encounter
--- OUTSIDE RECORDS SUMMARY | 2025-01-01 09:17 | XMS_ITS | Encounter Summary ---
Author Organization [employer] Address 75 [facility] [address]t [place] [address] Care Team Providers Care Offc Spec Name Role Phone Name, Shekhar ROSE Primary Care Provider [phone] PuNadine castañeda PharmD Unavailable [phone] Reason for Visit * Reason Comments Med Refill Encounter Details Date Type Department Care Team ([facility] st Contact Info) Description 05/09/2023 Refill [facility]INE [address] [place], [place] [phone] [facility] [address] [place] [address] Hyperlipidemia, unspecified hyperlipidemia type Social History Tobacco [...] type documented in this encounter Care Teams Offc Spec Relationship Specialty Start Date End Date Name, MD Shekhar [address] [place] [address] PCP - General Family Medicine 08/12/18 Nadine Almazan, KimberlyD [address] [place] [phone] Pharmacist Internal Medicine 10/30/21 documented as of this encounter
--- OUTSIDE RECORDS SUMMARY | 2025-01-01 09:17 | XMS_ITS | Encounter Summary ---
Author Organization [employer] Address 75 [facility] [address]t [place] [address] Care Team Providers Care Wet Milling Wheel Operator Name Role Phone Name, Shekhar ROSE Primary Care Provider [phone] PuNadine castañeda PharmD Unavailable [phone] Reason for Visit * Reason Comments Med Refill Encounter Details Date Type Department Care Team ([facility] st Contact Info) Description 06/12/2023 Refill [facility] [address] [place], [place] [phone] Sherri Munoz FNP Social History Tobacco Use Types Packs/Day Years [...] on filedocumented in this encounter Care Teams Wet Milling Wheel Operator Relationship Specialty Start Date End Date Name, MD Shekhar [address] [place], [place] [phone] PCP - General Family Medicine 08/12/18 Puia, Nadine, PharmD [address] [place] [address] Pharmacist Internal Medicine 10/30/21 documented as of this encounter
[2025-01-01 10:56] LABS: Alanine Aminotransferase 28 U/L (0-31); Alkaline Phosphatase 78 U/L (39-117); Anion Gap 12 (12-20); Aspartate Amino Transferase 30 U/L (5-31); Bilirubin Total 0.5 mg/dL (0.0-1.0); Blood Urea Nitrogen 16 mg/dL (9-16); Calcium 9.4 mg/dL (8.4-10.2); Carbon Dioxide 25 mmol/L (22-29); Chloride 108 mmol/L (96-108); Cholesterol 193 mg/dL (<200); Estimated Glomerular Filt Rate > 60; Glucose Random 153 mg/dL (60-115); HDL Cholesterol 55 mg/dL (>40); LDL Cholesterol Calculated 126 mg/dL (<100); Potassium 3.8 mmol/L (3.3-5.1); Sodium 141 mmol/L (135-145); Total Protein 7.7 g/dL (6.5-8.0); Triglycerides 61 mg/dL (<150)
[2025-01-01 12:06] LABS: Creatinine Urine 55.37 mg/dL; Microalbumin Urine < 5.0 mg/L
== END 2025-01-01 09:14 | disposition home or self-care (01) ==
LOC: HO.XRAY 09:13
PROVIDERS: PCP Internal Medicine Geriatric Medicine; Visit Provider Internal Medicine Geriatric Medicine
DX: E11.65 Type 2 diabetes mellitus with hyperglycemia (principal); I10 Essential (primary) hypertension; B00.1 Herpesviral vesicular dermatitis
CPT/HCPCS: 36415; 80053; 80061; 82043; 82570

== ENCOUNTER 2025-01-13 09:13 | Outpatient (REF) | payer MEDICARE, MEDICAID, SELFPAY ==
--- NOTE | ~2025-01-13 | XR_ITS ---
EXAMINATION: XR KNEE 4 OR MORE VIEWS RIGHT HISTORY: Chronic pain and problems walking COMPARISON: There are no prior studies available for comparison. FINDINGS: Four views of the right knee are submitted. Osseous mineralization is normal. There is no fracture or dislocation. There is mild narrowing of the patellofemoral compartment. The soft tissues are unremarkable. XR/XR knee RT 4V IMPRESSION: Mild narrowing of the patellofemoral compartment. Otherwise unremarkable examination of the right knee. Electronically signed by: Giorgio Andrews MD 01/13/2025 10:12 AM EDT
--- NOTE | ~2025-01-13 | XR_ITS ---
EXAMINATION: XR KNEE 4 OR MORE VIEWS LEFT HISTORY: Chronic pain and problems walking COMPARISON: Comparison is made with the prior examination dated 11/06/2017. FINDINGS: Four views of the left knee are submitted. Osseous mineralization is normal. There is no fracture or dislocation. There is mild degenerative change of the medial compartment with joint space narrowing and osteophyte formation. The soft tissues are unremarkable. There is no joint effusion. XR/XR knee LT 4V IMPRESSION: Mild osteoarthritis of the medial compartment. Electronically signed by: Giorgio Andrews MD 01/13/2025 10:14 AM EDT
--- OUTSIDE RECORDS SUMMARY | 2025-01-13 09:57 | XMS_ITS | Encounter Summary ---
Author Organization [employer] Address [address] [facility] 7t [place] [address] Care Team Providers Care Data Mining Analyst Name Role Phone Name, Shekhar ROSE Primary Care Provider [phone] Nadine Almazan PharmD Unavailable [phone] Reason for Referral * Imaging (Routine) - Authorized Specialty Diagnoses / Procedures Referred By Contac t Referred To Contact Radiology Diagnoses Encounter for screening mammogram for malignant neoplasm of breast Procedures BI Mammogram Screening Tomosynthesis Bilateral NameShekhar MD [address] [place] [address] Phone: tel: fax: [address] Phone: tel: fax: Referral ID Status Reason Start Date Expiration Date V isits Requested Visits Authorized [id number] Authorized 12/28/2024 12/28/2025 1 1 Reason for Visit * Reason Comments Diabetes Encounter Details Date Type Department Care Team (Late st Contact Info) Description 12/28/2024 3:15 PM EST Office Visit [facility] MEDICINE [address] [place] [address] [phone] Shekhar Rhodes MD [address] [place], [place] [phone] Hypertension, unspecified type (Primary Dx); Type 2 diabetes mellitus with hyperglycemia, without long-term current use of insulin ([facility]/HCC); Herpes labialis; Chronic knee pain, unspecified [...] house. Patient is interested in applying for DELIVERY AND INSTALLATION SUBCONTRACTOR services at home to have some help [...] hyperglycemia, without long-term current use of insulin ([facility]) Comments: Continue current dose of Farxiga, check [...] if we can get some hours of DELIVERY AND INSTALLATION SUBCONTRACTOR help at home for her. Orders: - [...] Type Priority Associated Diagnoses Orde r Schedule BI Mammogram Screening Tomosynthesis Bilateral Imaging Routine [...] Pressure Worsening(08/2023 1:29 PM EST) No Nadine Almazna, PharmD Blood Pressure < 140/90 Blood Pressure 126/79(2024 3:33 PM EST) No Nadine Almazan, PharmD Hemoglobin A1c < 7 Result Component 6.6( 3:22 PM EST) No Nadine Almazan PharmD Record your blood sugar as directed Result Component Worsening(08/2023 1:29 PM EST) No Nadine Almazan PharmD documented as of this encounter Procedures Procedure Name Priority Date/Time Associated Diagnosis Comments LIPID PANEL, STANDARD Routine 01/01/2025 10:15 AM EST Type 2 diabetes mellitus with hyperglycemia, without long-term current use of insulin ([facility]) Hypertension, unspecified type Herpes labialis COMPREHENSIVE METABOLIC PANEL Routine 01/01/2025 10:15 AM EST Type 2 diabetes mellitus with hyperglycemia, without long-term current use of insulin ([facility]) Hypertension, unspecified type Herpes labialis ALBUMIN, RANDOM URINE W/CREATININE Routine 01/01/2025 10:13 AM EST Type 2 diabetes mellitus with hyperglycemia, without long-term current use of insulin ([facility]) Hypertension, unspecified type Herpes labialis POCT GLYCATED HEMOGLOBIN, TOTAL Routine 12/28/2024 3:22 PM EST Type 2 diabetes mellitus with hyperglycemia, without long-term current use of insulin ([facility]) POCT GLUCOSE Routine 12/28/2024 3:21 PM EST Type 2 diabetes mellitus with hyperglycemia, without long-term current use of insulin ([facility]) documented in this encounter Results * (ABNORMAL) Lipid Panel, Standard (01/01/2025 10:15 AM EST) Triglycerides 61 <150 mg/dL [facility] Comment:Desirable Triglyceri de: less than 150 mg/dLBorderline High Triglyceride 150-199 mg/dLHigh Triglyceride: 200-499 mg/dLVery High Triglyceride: greater than or equal to 5OO mg/dL Cholesterol 193 <200 mg/dL [facility] Comment:Desirable Cholestero l: less than 200 mg/dLBorderline High Cholesterol: 200-239 mg/dLHigh Cholesterol: greater than 239 mg/dL LDL Cholesterol Calculated 126(H) <100 mg/dL [facility] Comment:Desirable LDL: less than 100 mg/dLNear Optimal/Above Optimal LDL: 110- 129 mg/dLBorderline High LDL: 130-159 mg/dLHigh LDL: 160-189 mg/dLVery High LDL: greater than or equal to 190 mg/dL HDL Cholesterol 55 >40 mg/dL [facility] Comment:Desirable HDL: great er than 40 mg/dL Note: This HDL assay may give artificially low results in patients with liver disease. Blood Venous blood specimen / Unknown 01/01/2025 10:15 AM EST 01/01/2025 10:15 AM EST us Shekhar Name LAB BLOOD ORDERABLES Final Resul t [facility] [address] [place], [place] [phone] * (ABNORMAL) Comprehensive Metabolic Panel (01/01/2025 10:15 AM EST) Sodium 141 135 - 145 mmol/L [facility] Potassium 3.8 3.3 - 5.1 mmol/L [facility] Chloride 108 96 - 108 mmol/L [facility] Carbon Dioxide 25 22 - 29 mmol/L [facility] Anion Gap 12 12 - 20 [facility] Urea Nitrogen (BUN) 16 9 - 16 mg/dL [facility] Creatinine, Serum 0.67 0.5 - 1.4 mg/dL [facility] Estimated Glomerular Filt Rate >60 [facility] Comment:Chronic Kidney Disea se: Estimated GFR < 60 mL/min/1.57l2Oiydrc Kidney Disease: Estimated GFR < 15 mL/min/1.73m2 Glucose 153(H) 60 - 115 mg/dL [facility] Calcium 9.4 8.4 - 10.2 mg/dL [facility] Bilirubin, Total 0.5 0.0 - 1.0 mg/dL [facility] Aspartate Amino Transferase 30 5 - 31 U/L [facility] Alanine Aminotransferase 28 0 - 31 U/L [facility] Total Protein 7.7 6.5 - 8.0 g/dL [facility] Albumin Level 4.0 3.5 - 5.0 g/dL [facility] Alkaline Phosphatase 78 39 - 117 U/L [facility] Blood Venous blood specimen / Unknown 01/01/2025 10:15 AM EST 01/01/2025 10:15 AM EST us Shekhar Rhodes MD LAB BLOOD ORDERABLES Final Resul t Performing Organization Address City/[facility]/ZIP Co de Phone Number [facility] [address] [place] [phone] * Albumin, Random Urine W/Creatinine (01/01/2025 10:13 AM EST) Creatinine, Urine 55.37 mg/dL [facility] Microalbumin Urine <5.0 mg/L [facility] Microalbum Creatinine Ratio Ur TNP <30 ug/mg cr [facility] Comment:Unable to calculate albumin/creatinine ratio due to lowmicroalbumin or creatinine result. Urine (Urine, Random) 01/01/2025 10:13 AM EST 01/01/2025 10:30 AM EST us Shekhar Rhodes MD LAB URINE ORDERABLES Final Resul t Performing Organization Address City/[facility]/ZIP Co de Phone Number [facility] [address] [place] [address] [place] [phone] * (ABNORMAL) POCT HGB A1C (12/28/2024 3:22 PM EST) Hemoglobin A1C 6.6(A) 4.0 - 6.0 % QC Media Lot # [id number] Lot# Expiration Date [id number] Blood 12/28/2024 3:22 PM EST Shekhar Name POINT OF CARE TEST ENTER/EDIT OR DERABLES Final Result * POCT Glucose (12/28/2024 3:21 PM EST) Glucose Blood, POC 139 60 - 200 mg/dL QC Media Lot # [id number] Lot# Expiration Date [id number] Blood Capillary blood specimen / Unknown 12/28/2024 3:21 PM EST Shekhar Name POINT OF CARE TEST ENTER/EDIT OR DERABLES Final Result documented in this encounter Visit Diagnoses Diagnosis Hypertension, unspecified type- Primary Type 2 diabetes mellitus with hyperglycemia, without long-term current use of insulin ([facility]) Herpes labialis Herpes simplex without mention of complication Chronic knee pain, unspecified laterality Encounter for screening mammogram for malignant neoplasm of breast Encounter for immunization documented in this encounter Additional Health Concerns Assessment Noted Time PHQ-9 Depression Total Score: 0 07/15/20 23 10:32 AM EDT documented as of this encounter Care Teams Data Mining Analyst Relationship Specialty Start Date End Date Name, MD Shekhar [address] [place] [address] PCP - General Family Medicine 08/12/18 Nadine Almazan PharmD [address] [place] [address] Pharmacist Internal Medicine 10/30/21 documented as of this encounter
--- OUTSIDE RECORDS SUMMARY | 2025-01-13 09:57 | XMS_ITS | Encounter Summary ---
Author Organization [employer] Address [address] [facility] [address] 7[address] [place] [address] Care Team Providers Care Professional Services Consultant Name Role Phone Name, Shekhar ROSE Primary Care Provider [phone] Nadine Almazan PharmD Unavailable [phone] Encounter Details Date Type Department Care Team ([facility] st Contact Info) Description 12/29/2024 Telephone [facility] MEDICINE [address] [place] [address] Kelly Clements, RN Social History Tobacco Use [...] her daughter that is one of our [facility]. She has difficultieswalking due to knee pain. Her daughter tells me that patient sometimes needs help with dressing andwith work around the house. Patient is interested in applying for WINCH DERRICK OPERATOR services at home to have somehelp around the house. Can you please call Chauffeur Prive at to see if they can do evaluation? . No answer, lvm to return call and ask to speak to [place] team nurses. * Telephone Encounter - Kelly Clements RN - 12/29/2024 9:24 AM EST ----- Message from Shekhar Rhodes MD sent at 12/28/2024 5:20 PM EST ----- Patient came with her daughter that is one of our [facility]. She has difficulties walking due to knee pain. Her daughter tells me that patient sometimes needs help with dressing and with work around the house. Patient is interested in applying for WINCH DERRICK OPERATOR services at home to have some help around the house. Can you please call Chauffeur P[employer] at to see if they can do [...] documented as of this encounter Care Teams Professional Services Consultant Relationship Specialty Start Date End Date Name, MD Shekhar [address] [place] [address] PCP - General Family Medicine 08/12/18 Nadine Almazan, PharmD [address] [place] [address] Pharmacist Internal Medicine 10/30/21 documented as of this encounter
--- OUTSIDE RECORDS SUMMARY | 2025-01-13 09:57 | XMS_ITS | Encounter Summary ---
Author Organization [employer] Address [address] [facility] [address] 7t [place] [address] Care Team Providers Care Outside Machinist Apprentice Name Role Phone Name, Shekhar ROSE Primary Care Provider [phone] Nadine Almazan PharmD Unavailable [phone] Reason for Visit * Reason Comments Pre-visit Planning SDOH unable to reach LVM Encounter Details Date Type Department Care Team ([facility] st Contact Info) Description 12/17/2024 Patient Outreach [facility] [address] [place], [place] [phone] Name, MD Shekhar [address] [place] [address] Pre-visit Planning (SDOH unable to reach LVM [...] documented as of this encounter Care Teams Outside Machinist Apprentice Relationship Specialty Start Date End Date Name, MD Shekhar [address] [place] [address] PCP - General Family Medicine 08/12/18 Nadine Almazan PharmD [address] [place] [address] Pharmacist Internal Medicine 10/30/21 documented as of this encounter
--- OUTSIDE RECORDS SUMMARY | 2025-01-13 09:57 | XMS_ITS | Encounter Summary ---
Author Organization [facility] Address [address] [facility] 7t [place] [address] Care Team Providers Care Process Safety Engineer Name Role Phone Name, Shekhar ROSE Primary Care Provider [phone] Nadine Almazan PharmD Unavailable [phone] Encounter Details Date Type Department Care Team ([facility] st Contact Info) Description 01/07/2025 Population Health Risk Score [facility] (C[facility]) Department [address] [facility] [address] [place] [address] Provider, Population Health Generic Social History Tobacco Use Types Packs/Day Years [...] documented as of this encounter Care Teams Process Safety Engineer Relationship Specialty Start Date End Date Name, MD Shekhar [address] [place] [address] PCP - General Family Medicine 08/12/18 PuiaKevonNadine, PharmD [address] [place] [address] Pharmacist Internal Medicine 10/30/21 documented as of this encounter
--- OUTSIDE RECORDS SUMMARY | 2025-01-13 09:57 | XMS_ITS | Encounter Summary ---
Author Organization [employer] Address [address] [facility] [address] [place] [address] Care Team Providers Care Sanitary Aide Name Role Phone Name, Shekhar ROSE Primary Care Provider [phone] Nadine Almazan PharmD Unavailable [phone] Encounter Details Date Type Department Care Team ([facility] st Contact Info) Description 12/29/2024 Telephone [facility] MEDICINE [address] [place] [address] Kelly Clements, RN Social History Tobacco Use [...] her daughter that is one of our [facility]. She has difficultieswalking due to knee pain. Her daughter tells me that patient sometimes needs help with dressing andwith work around the house. Patient is interested in applying for RADIO TECHNICIAN services at home to have somehelp around the house. Can you please call Volly at to see if they can do evaluation? No answer, lvm to return call and ask to speak to [place] team nurses. * Telephone Encounter - Kelly Clements RN - 12/29/2024 10:33 AM EST ----- Message from Shekhar Rhodes MD sent at 12/28/2024 5:20 PM EST ----- Patient came with her daughter that is one of our [facility]. She has difficulties walking due to knee pain. Her daughter tells me that patient sometimes needs help with dressing and with work around the house. Patient is interested in applying for RADIO TECHNICIAN services at home to have some help around the house. Can you please call Volly at to see if they can do [...] documented as of this encounter Care Teams Sanitary Aide Relationship Specialty Start Date End Date Name, MD Shekhar [address] [place] [address] PCP - General Family Medicine 08/12/18 Nadine Almazan, PharmD [address] [place] [address] Pharmacist Internal Medicine 10/30/21 documented as of this encounter
--- OUTSIDE RECORDS SUMMARY | 2025-01-13 09:57 | XMS_ITS | Encounter Summary ---
Author Organization [employer] Address [address] [facility] 7t [place] [address] Care Team Providers Care Business Analytics Intern Name Role Phone Name, Sehkhar ROSE Primary Care Provider [phone] PuNadine castañeda PharmD Unavailable [phone] Reason for Visit * Reason Comments Med Refill Encounter Details Date Type Department Care Team ([facility] st Contact Info) Description 05/26/2023 Refill [facility] MEDICINE [address] [place], [place] [phone] [facility] [address] [place] [address] Hyperlipidemia, unspecified hyperlipidemia type Social History Tobacco [...] type documented in this encounter Care Teams Business Analytics Intern Relationship Specialty Start Date End Date Name, MD Shekhar [address] [place] [address] PCP - General Family Medicine 08/12/18 Nadine Almazan, KimberlyD [address] [place] [address] Pharmacist Internal Medicine 10/30/21 documented as of this encounter
--- OUTSIDE RECORDS SUMMARY | 2025-01-13 09:57 | XMS_ITS | Encounter Summary ---
Author Organization [employer] Address [address] [facility] 7t [place] [address] Care Team Providers Care Liquid Fertilizer Servicer Name Role Phone Name, Shekhar ROSE Primary Care Provider [phone] Nadine Almazan PharmD Unavailable [phone] Encounter Details Date Type Department Care Team (Late st Contact Info) Description 09/13/2022 Abstract [facility] [address] [place] [address] Provider, MD Anthony Social History Tobacco Use [...] on filedocumented in this encounter Care Teams Liquid Fertilizer Servicer Relationship Specialty Start Date End Date Name, MD Shekhar [address] [place] [address] PCP - General Family Medicine 08/12/18 Nadine Almazan, PharmD [address] [place] [address] Pharmacist Internal Medicine 10/30/21 documented as of this encounter
--- OUTSIDE RECORDS SUMMARY | 2025-01-13 09:57 | XMS_ITS | Encounter Summary ---
Author Organization [employer] Address [address] [facility] [address] 7[address] [place] [address] Care Team Providers Care Forming Tube Selector Name Role Phone Name, Shekhar ROSE Primary Care Provider [phone] Nadine Almazan PharmD Unavailable [phone] Reason for Visit * Reason Comments Med Refill Encounter Details Date Type Department Care Team ([facility] Contact Info) Description 06/29/2024 Refill [facility] [address] [place], [place] [phone] Bryant Garcia MD [address] [place], [place] [phone] Social History Tobacco Use Types Packs/Day Years Used Date Smoking Tobacco: Never Smokeless Tobacco: Never Alcohol Use Standard [...] is your housing situation today? I have jaylenecarl roy 08/22/[address] you [...] documented as of this encounter Care Teams Forming Tube Selector Relationship Specialty Start Date End Date Name, MD Shekhar [address] [place] [address] PCP - General Family Medicine 08/12/18 Puia, Nadine, PharmD [address] [place] [address] Pharmacist Internal Medicine 10/30/21 documented as of this encounter
--- OUTSIDE RECORDS SUMMARY | 2025-01-13 09:57 | XMS_ITS | Encounter Summary ---
Author Organization [employer] Address [address] [facility] 7t [place] [address] Care Team Providers Care Safety Associate Name Role Phone Name, Shekhar ROSE Primary Care Provider PuNadine castañeda PharmD Unavailable [phone] Reason for Visit * Reason Comments Med Refill Encounter Details Date Type Department Care Team ([facility] st Contact Info) Description 06/12/2023 Refill [facility] [address] [place], [place] [phone] Sherri Munoz FNP Social History Tobacco Use [...] on filedocumented in this encounter Care Teams Safety Associate Relationship Specialty Start Date End Date Name, MD Shekhar [address] [place], [place] [phone] PCP - General Family Medicine 08/12/18 Puia, Nadine, PharmD [address] [place] [address] Pharmacist Internal Medicine 10/30/21 documented as of this encounter
--- OUTSIDE RECORDS SUMMARY | 2025-01-13 09:57 | XMS_ITS | Encounter Summary ---
Author Organization [employer] Address [address] [facility] 7t [place] [address] Care Team Providers Care Insurance Producer Name Role Phone Name, Shekhar ROSE Primary Care Provider [phone] Nadine Almazan PharmD Unavailable [phone] Encounter Details Date Type Department Care Team (Late st Contact Info) Description 03/27/2023 Abstract [facility] MEDICINE [address] [place] [address] Name, MD Shekhar [address] [place] [address] Social History Tobacco Use Types Packs/Day Years [...] on filedocumented in this encounter Care Teams Insurance Producer Relationship Specialty Start Date End Date Name, MD Shekhar [address] [place], [place] [phone] PCP - General Family Medicine 08/12/18 Nadine Almazan PharmD [address] [place] [address] Pharmacist Internal Medicine 10/30/21 documented as of this encounter
--- OUTSIDE RECORDS SUMMARY | 2025-01-13 09:57 | XMS_ITS | Encounter Summary ---
Author Organization [employer] Address [address] [facility] [address] [place] [address] Care Team Providers Care Deliverer Merchandise Name Role Phone Name, Shekhar ROSE Primary Care Provider [phone] Nadine Almazan PharmD Unavailable [phone] Reason for Visit * Reason Onset Date Comments triage 03/17/2023 Encounter Details Date Type Department Care Team ([facility] st Contact Info) Description 03/17/2023 Telephone [facility] MEDICINE [address] [place], [place] [phone] Name, MD Shekhar [address] [place] [address] triage Social History Tobacco Use Types Packs/Day [...] 03/17/2023 1:43 PM EDT Triage call with [employer] Manager ID [id number] Pt reports upper lip has some swelling and blisters have developed which are almost up to the nose and on the sides of lip. Pt reports this started 03/16 with sneezing and wiping of nose due to allergies. Pt has had this before and was treated with good effect. Pt is advised to come to [facility] today to be seen and Pt agrees [...] on filedocumented in this encounter Care Teams Deliverer Merchandise Relationship Specialty Start Date End Date Name, MD Shekhar [address] [place] [address] PCP - General Family Medicine 08/12/18 Nadine Almazan PharmD [address] [place] [address] Pharmacist Internal Medicine 10/30/21 documented as of this encounter
--- OUTSIDE RECORDS SUMMARY | 2025-01-13 09:57 | XMS_ITS | Clinical Summary ---
Author Organization [employer] Address [address] [facility] 7t [place] [address] Care Team Providers Care Skin Diving Teacher Name Role Phone Name, Shekhar ROSE Primary Care Provider [phone] Nadine Almazan PharmD Unavailable [phone] Allergies Active Allergy Reactions Criticality Noted [...] hyperglycemia, without long-term current use of insulin ([facility]) Apply once a day to the affected foot 100 g 2 3 Active fluticasone (Flonase) 50 MCG/ACT nasal spray USE 1 SPRAY IN EACH NOSTRIL DAILY SHAKE GENTLY 16 g 2 4 Active losartan (Cozaar) 25 MG tabletIndication s:Type 2 diabetes mellitus with hyperglycemia, without long-term current use of insulin ([facility]),Hypert ension, unspecified type Take 1 tablet (25 [...] 30 tablet 2 5 01/08/20 25 Active Problems Problem Noted Date Diagnosed Date Herpes labialis 12/28/2024 Type 2 diabetes mellitus, wi thout long-term current use of insulin 03/09/2019 Vitamin D deficiency 02/22/2019 Asthma 11/17/2018 Hypertensive disorder 09/14/2018 Knee pain 08/12/2018 Hyperlipidemia 08/07/2012 Allergic rhinitis 08/07/2012 Gastroesophageal reflux disease 08/07/2012 Encounters Date Type Department Care Team Description 01/07/2025 Population Health Risk Score [facility] Department [address] [place] [phone] Provider, Population Health Generic 12/29/2024 Telephone [facility] [address] [place] [address] Kelly Clements RN 12/29/2024 Telephone [facility] [address] [place] [address] Kelly Clements RN 12/28/2024 3:15 PM EST Office Visit [address] [address] Shekhar Rhodes MD Hypertension, unspecified type (Primary Dx); Type 2 diabetes mellitus with hyperglycemia, without long-term current use of insulin ([facility]); Herpes labialis; Chronic knee pain, unspecified laterality; Encounter for screening mammogram for malignant neoplasm of breast; Encounter for immunization 12/17/2024 Patient Outreach [facility] [address] [place], [place] [phone] Shekhar Rhodes MD Pre-visit Planning ([facility] unable to reach [facility] ) 10/28/2024 Telephone [facility] [address] [place] [address] Judi Valle MA Chart Prep from Last 3 Months Immunizations Name Administration [...] exists Depression Screening 07/15/2024 07/15/2023, 07/15/20 23 SDOH Screening 07/15/2024 07/15/2023 Dental Oral Exam 07/30/2024 01/28/2024, 08/19/2018 Diabetes: Foot Exam 09/29/2024 09/29/2023, 09/29/2023, 09/29/2023, Additional history exists Dental X-Ray: Bitewings 01/28/2025 01/28/2024, 08/19 Alcohol/Substance Use Screening 04/15/2025 04/15/2024 Diabetes: Hemoglobin A1C 06/30/2025 0304/ 025, 04/15/2024, 01/01/2024, Additional history exists Eye Exam 08/28/2025 08/28/2023, 11/2022, 08/28/2023, Additional history exists Tobacco Screening 12/28/2025 12/28/2024 Diabetes: Urine Protein Screening 01/01/2026 01/01/2025, 01/01/2024, 11/20/2019 Lipid Panel 01/01/2026 01/01/2025, 06/27, 09/16/2022, Additional history exists Dental X-Ray: Full Mouth 01/28/2027 024, 06/17/2022, [...] without long-term current use of insulin (CMS/HCC) Hypertension, unspecified type Herpes labialis COMPREHENSIVE METABOLIC PANEL Routine 01/01/2025 10:15 AM EST Type 2 diabetes mellitus with hyperglycemia, without long-term current use of insulin (CMS/HCC) Hypertension, unspecified type Herpes labialis ALBUMIN, RANDOM URINE W/CREATININE Routine 01/01/2025 10:13 AM EST Type 2 diabetes mellitus with hyperglycemia, without long-term current use of insulin (CMS/HCC) Hypertension, unspecified type Herpes labialis POCT GLYCATED [...] Symptomatic irreversible pulpitis Periodontal disease Dental caries MAMMOGRAM GENERIC Routine 05/29/2022 12: 18 PM EDT HM COLONOSCOPY Routine 12/14/2019 3:35 PM EST from Last 3 Months or Most Recently Relevant to Health Maintenance Results * (ABNORMAL) Lipid Panel, Standard (01/01/2025 10:15 AM EST) Triglycerides 61 <150 mg/dL [facility] Comment:Desirable Triglyceri de: less than 150 mg/dLBorderline High Triglyceride 150-199 mg/dLHigh Triglyceride: 200-499 mg/dLVery High Triglyceride: greater than or equal to 5OO mg/dL Cholesterol 193 <200 mg/dL [facility] Comment:Desirable Cholestero l: less than 200 mg/dLBorderline High Cholesterol: 200-239 mg/dLHigh Cholesterol: greater than 239 mg/dL LDL Cholesterol Calculated 126(H) <100 mg/dL [facility] Comment:Desirable LDL: less than 100 mg/dLNear Optimal/Above Optimal LDL: 110- 129 mg/dLBorderline High LDL: 130-159 mg/dLHigh LDL: 160-189 mg/dLVery High LDL: greater than or equal to 190 mg/dL HDL Cholesterol 55 >40 mg/dL [facility] Comment:Desirable HDL: great er than 40 mg/dL Note: This HDL assay may give artificially low results in patients with liver disease. Blood Venous blood specimen / Unknown 01/01/2025 10:15 AM EST 01/01/2025 10:15 AM EST us Shekhar Name MD LAB BLOOD ORDERABLES Final Resul t [facility] [address] [place] [phone] * (ABNORMAL) Comprehensive Metabolic Panel (01/01/2025 10:15 AM EST) Sodium 141 135 - 145 mmol/L [facility] Potassium 3.8 3.3 - 5.1 mmol/L [facility] Chloride 108 96 - 108 mmol/L [facility] Carbon Dioxide 25 22 - 29 mmol/L [facility] Anion Gap 12 12 - 20 [facility] Urea Nitrogen (BUN) 16 9 - 16 mg/dL [facility] Creatinine, Serum 0.67 0.5 - 1.4 mg/dL [facility] Estimated Glomerular Filt Rate >60 [facility] Comment:Chronic Kidney Disea se: Estimated GFR < 60 mL/min/1.20o8Fogtts Kidney Disease: Estimated GFR < 15 mL/min/1.73m2 Glucose 153(H) 60 - 115 mg/dL [facility] Calcium 9.4 8.4 - 10.2 mg/dL [facility] Bilirubin, Total 0.5 0.0 - 1.0 mg/dL [facility] Aspartate Amino Transferase 30 5 - 31 U/L [facility] Alanine Aminotransferase 28 0 - 31 U/L [facility] Total Protein 7.7 6.5 - 8.0 g/dL [facility] Albumin Level 4.0 3.5 - 5.0 g/dL [facility] Alkaline Phosphatase 78 39 - 117 U/L [facility] Blood Venous blood specimen / Unknown 01/01/2025 10:15 AM EST 01/01/2025 10:15 AM EST us Shekhar Rhodes MD LAB BLOOD ORDERABLES Final Resul t Performing Organization Address [facility] de Phone Number [facility] [address] [place] [phone] * Albumin, Random Urine W/Creatinine (01/01/2025 10:13 AM EST) Creatinine, Urine 55.37 mg/dL [facility] Microalbumin Urine <5.0 mg/L [facility] Microalbum Creatinine Ratio Ur TNP <30 ug/mg cr [facility] Comment:Unable to calculate albumin/creatinine ratio due to lowmicroalbumin or creatinine result. Urine (Urine, Random) 01/01/2025 10:13 AM EST 01/01/2025 10:30 AM EST us Shekhar Rhodes MD LAB URINE ORDERABLES Final Resul t Performing Organization Address [facility] de Phone Number [facility] [address] [place] [phone] * (ABNORMAL) POCT HGB A1C (12/28/2024 3:22 PM EST) Hemoglobin A1C 6.6(A) 4.0 - 6.0 % QC Media Lot # [id number] Lot# Expiration Date [id number] Blood 12/28/2024 3:22 PM EST us Shekhar Rhodes MD POINT OF CARE TEST ENTER/EDIT OR DERABLES Final Result * POCT Glucose (12/28/2024 3:21 PM EST) Pathologist [facility] Glucose Blood, POC 139 60 - 200 mg/dL QC Media Lot # [id number] Lot# Expiration Date [id number] Blood Capillary blood specimen / Unknown 12/28/2024 3:21 PM EST us Shekhar Rhodes MD POINT OF CARE TEST ENTER/EDIT OR DERABLES Final Result * Hepatitis C Antibody with Reflex to HCV, RNA, Quantitative, Real-Time PCR (05/11/2024 8:27 AM EDT) Pathologist [facility] Hepatitis C Antibody Nonreactive Nonreactive [facility] Comment:Antibodies to HCV no t detected; does not exclude early acuteHCV infection. Blood Venous blood specimen / Unknown 05/11/2024 8:27 AM EDT 05/11/2024 11:28 AM EDT us Shekhar Rhodes MD LAB BLOOD ORDERABLES Final Resul t [facility] [address] [place] [phone] * Mammography Report 1 (05/29/2022 12:18 PM EDT) Anatomical Region Laterality Modality Breast Bilateral Mammography 05/29/2022 12:1 8 PM EDT Narrative 05/30/2022 1:27 PM EDT Refer to the Notes tab for result details [facility] Procedure: Mammography Report 1 Procedure Note Provider, MD Anthony - 01/19/2023 Refer to the Notes tab for result details [facility] Procedure: Mammography Report 1 us Shekhar Name IMCarlos BI PROCEDURES Final Result * Colonoscopy (12/14/2019 3:35 PM EST) Colonoscopy Normal Normal Narrative Anu Del Cid - 12/14/2019 3:35 PM EST Recommend 3 year follow up Historical Provider HEALTH MAINTENANCE Final Result from Last 3 Months or Most Recently Relevant to Health Maintenance Insurance MEDICARE [facility] STAND AD[place] Care Teams Skin Diving Teacher Relationship Specialty Start Date End Date Name, MD Shekhar [address] [place] [address] PCP - General Family Medicine 08/12/18 Nadine Almazan, Alber [address] [place] [address] Pharmacist Internal Medicine 10/30/21
--- OUTSIDE RECORDS SUMMARY | 2025-01-13 09:57 | XMS_ITS | Encounter Summary ---
Author Organization [employer] Address [address] [facility] 7t [place] [address] Care Team Providers Care Motion Picture Director Name Role Phone Name, Shekhar ROSE Primary Care Provider [phone] PuNadine castañeda PharmD Unavailable [phone] Reason for Visit * Reason Comments Med Refill Encounter Details Date Type Department Care Team ([facility] st Contact Info) Description 05/09/[address] [facility] [address] [place], [place] [phone] [facility] [address] [place] [address] Hyperlipidemia, unspecified hyperlipidemia type Social History Tobacco [...] type documented in this encounter Care Teams Motion Picture Director Relationship Specialty Start Date End Date Name, MD Shekhar [address] [place] [address] PCP - General Family Medicine 08/12/18 Nadine Almazan, KimberlyD [address] [place] [phone] Pharmacist Internal Medicine 10/30/21 documented as of this encounter
== END 2025-01-13 09:14 | disposition home or self-care (01) ==
LOC: HO.HHCX 09:13
PROVIDERS: Visit Provider Internal Medicine Geriatric Medicine
DX: M25.561 Pain in right knee (principal); M25.562 Pain in left knee; G89.29 Other chronic pain
CPT/HCPCS: 73564

== ENCOUNTER → 2025-01-13 09:14 | Outpatient (BNV) | payer MEDICARE, MEDICAID, SELFPAY | PROVIDERS: Visit Provider Radiology Diagnostic Radiology | DX: M25.561 Pain in right knee (principal); M25.562 Pain in left knee; R26.2 Difficulty in walking, not elsewhere classified | CPT/HCPCS: 73564 ==

== ENCOUNTER 2025-02-08 14:23 | Outpatient (REF) | payer MEDICARE, MEDICAID, SELFPAY ==
--- OUTSIDE RECORDS SUMMARY | 2025-02-08 17:35 | XMS_ITS | Encounter Summary ---
Author Organization [employer] Address [address] [place] [address] 7t [place] [address] Care Team Providers Care Bread Baker Name Role Phone Name, Shekhar ROSE Primary Care Provider [phone] Nadine Almazan PharmD Unavailable [phone] Reason for Visit * Reason Comments Med Refill Encounter Details Date Type Department Care Team ([facility] Contact Info) Description 05/26/2023 Refill [facility] [address] [place] [phone] [place] Birgit [facility] [address] [place] [address] Hyperlipidemia, unspecified hyperlipidemia type Social History Tobacco Use Types Packs/Day Years Used Date Smoking Tobacco: Never Assessed Comments Unknown Sex and Gender Information Value Date Recorded Sex Assigned at Female 08/26/2022 10:17 AM EDT Legal Sex Female 10:17 AM EDT Gender Identity Female 08/26/2022 10:17 AM EDT Sexual Orientation Straight 08/26/2022 10 :17 AM EDT documented as of this encounter Plan of Treatment Upcoming Encounters Date Type Department Care Team ([facility] Contact Info) Description 02/24/2025 11:00 AM EDT Office Visit [facility] [address] [place] [address] Cassius Fu DMD [address] [place] [address] 04/28/2025 9:00 AM EDT Office Visit [facility] [address] [place] [phone] Name, MD Shekhar [address] [place] [address] documented as of this encounter Goals Goal Patient Goal Type Associated Problems Recent Progress Patient-Stated? Author Record your blood pressure periodically, as directed Blood Pressure Worsening(09/26 1:29 PM EST) No Nadine Almazan PharmD documented as of this encounter Visit Diagnoses Diagnosis Hyperlipidemia, unspecified hyperlipidemia type documented in this encounter Care Teams Bread Baker Relationship Specialty Start Date End Date Name, MD Shekhar [address] [place] [address] PCP - General Family Medicine 08/12/18 Nadine Almazan PharmD [address] [place] [address] Pharmacist Internal Medicine 10/30/21 documented as of this encounter
--- OUTSIDE RECORDS SUMMARY | 2025-02-08 17:35 | XMS_ITS | Encounter Summary ---
Author Organization [employer] [facility] Address [address] [facility] 7t [place] [address] Care Team Providers Care Contact Center Professional Name Role Phone Name, Shekhar ROSE Primary Care Provider [phone] Nadine Almazan PharmD Unavailable [phone] Encounter Details Date Type Department Care Team (Late Contact Info) Description 09/13/2022 Abstract [facility] [address] [place] [phone] Provider, MD Anthony Social History Tobacco Use [...] Upcoming Encounters Date Type Department Care Team (Late Contact Info) Description 02/24/2025 11:00 AM EDT Office Visit [facility] [address] [place] [address] Cassius Fu DMD [address] [place] [address] 04/28/2025 9:00 AM EDT Office Visit [facility] [address] [place] [phone] Shekhar Rhodes MD [address] [place] [address] documented as of this encounter Visit Diagnoses Not on filedocumented in this encounter Care Teams Contact Center Professional Relationship Specialty Start Date End Date Shekhar Rhodes MD [address] [place] [address] PCP - General Family Medicine 08/12/18 Nadine Almazan PharmD [address] [place] [address] Pharmacist Internal Medicine 10/30/21 documented as of this encounter
--- OUTSIDE RECORDS SUMMARY | 2025-02-08 17:35 | XMS_ITS | Encounter Summary ---
Author Organization [employer] Address [address] [facility] 7t [place] [address] Care Team Providers Care Psychologist Social Name Role Phone Name, Shekhar ROSE Primary Care Provider [phone] Nadine Almazan PharmD Unavailable [phone] Encounter Details Date Type Department Care Team (Late Contact Info) Description 03/27/2023 Abstract [facility] [address] [place] [phone] Name, MD Shekhar [address] [place] [address] Social History Tobacco Use Types Packs/Day Years [...] Description 02/24/2025 11:00 AM EDT Office Visit [facility] [address] [place] [phone] Cassius Fu DMD [address] [place] [address] 04/28/2025 9:00 AM EDT Office Visit [facility] [address] [place] [address] Name, [place] [address] documented as of this encounter Goals Goal Patient Goal Type Associated Problems Recent Progress Patient-Stated? Author Record your blood pressure periodically, as directed Blood Pressure Worsening(09/26 1:29 PM EST) No Nadine Almazan, Alber documented as of this encounter Procedures Procedure Name Priority Date/Time Associated Diagnosis Comments COLONOSCOPY Routine 12/14/2019 3:35 PM EST documented in this encounter Results * Colonoscopy (12/14/2019 3:35 PM EST) Colonoscopy Normal Normal Narrative Anu Del Cid - 12/14/2019 3:35 PM EST Recommend 3 year follow up us Historical Provider HEALTH MAINTENANCE Final Result documented in this encounter Visit Diagnoses Not on filedocumented in this encounter Care Teams Psychologist Social Relationship Specialty Start Date End Date Name, [place] [address] PCP - General Family Medicine 08/12/18 Nadine Almazan, [place] [address] Pharmacist Internal Medicine 10/30/21 documented as of this encounter
--- OUTSIDE RECORDS SUMMARY | 2025-02-08 17:35 | XMS_ITS | Encounter Summary ---
Author Organization [employer] Address [address] [place] [address] 7t [place] [address] Care Team Providers Care Museum Specialist Name Role Phone Name, Shekhar ROSE Primary Care Provider [phone] Nadine Almazan PharmD Unavailable [phone] Reason for Visit * Reason Comments Med Refill Encounter Details Date Type Department Care Team ([facility] Contact Info) Description 05/09/[address] [facility] [address] [place] [phone] [place] Birgit [facility] [address] [place] [address] Hyperlipidemia, unspecified hyperlipidemia type Social History Tobacco [...] Upcoming Encounters Date Type Department Care Team ([facility] Contact Info) Description 02/24/2025 11:00 AM EDT Office Visit [facility] [address] [place] [address] Cassius Fu DMD [address] [place] [address] 04/28/2025 9:00 AM EDT Office Visit [facility] [address] [place] [phone] Name, MD Shekhar [address] [place] [address] documented as of this encounter Goals Goal Patient Goal Type Associated Problems Recent Progress Patient-Stated? Author Record your blood pressure periodically, as directed Blood Pressure Worsening(09/26 1:29 PM EST) No Nadine Almazan PharmD documented as of this encounter Visit Diagnoses Diagnosis Hyperlipidemia, unspecified hyperlipidemia type documented in this encounter Care Teams Museum Specialist Relationship Specialty Start Date End Date Name, MD Shekhar [address] [place] [address] PCP - General Family Medicine 08/12/18 Nadine Almazan PharmD [address] [place] [address] Pharmacist Internal Medicine 10/30/21 documented as of this encounter
--- OUTSIDE RECORDS SUMMARY | 2025-02-08 17:35 | XMS_ITS | Encounter Summary ---
Author Organization [employer] Address [address] [facility] 7t [place] [address] Care Team Providers Care Surgical Technology Instructor Name Role Phone Name, Shekhar ROSE Primary Care Provider [phone] Nadine Almazan PharmD Unavailable [phone] Reason for Visit * Reason Onset Date Comments triage 03/17/2023 Encounter Details Date Type Department Care Team ([facility] st Contact Info) Description 03/17/2023 Telephone [facility] [address] [place], [place] [phone] Name, MD Shekhar [address] [place] [address] triage Social History Tobacco Use Types Packs/Day [...] 03/17/2023 1:43 PM EDT Triage call with [employer] Executive Assistant [place] [id number] Pt reports upper lip has some swelling and blisters have developed which are almost up to the nose and on the sides of lip. Pt reports this started 03/16 with sneezing and wiping of nose due to allergies. Pt has had this before and was treated with good effect. Pt is advised to come to [facility] today to be seen and Pt agrees [...] documented in this encounter Plan of Treatment Upcoming Encounters Date Type Department Care Team (Late st Contact Info) Description 02/24/2025 11:00 AM EDT Office Visit [facility] [address] [place] [address] Cassius Fu, DMD [address] [place] [address] 04/28/2025 9:00 AM EDT Office Visit [facility] [address] [place] [address] Name, MD Shekhar [address] [place] [address] documented as of this encounter Visit Diagnoses Not on filedocumented in this encounter Care Teams Surgical Technology Instructor Relationship Specialty Start Date End Date NameShekhar MD [address] [place] [address] PCP - General Family Medicine 08/12/18 Nadine Almazan, Alber [address] [place] [phone] Pharmacist Internal Medicine 10/30/21 documented as of this encounter
--- OUTSIDE RECORDS SUMMARY | 2025-02-08 17:35 | XMS_ITS | Clinical Summary ---
Author Organization [facility] [employer] [facility] [employer] Address [address] 7[address] [place] [address] Care Team Providers Care Legal Word Processor Name Role Phone Name, Shekhar ROSE Primary Care Provider [phone] Nadine Almazan PharmD Unavailable [phone] Allergies Active Allergy Reactions Criticality Noted Date Comments Latex Rash Low 01/28/2024 Metformin Abdominal Pain 04/15/2024 Penicillin V Other reaction(s): unspecified Medications Blood Glucose Monitoring Suppl (FreeStyle Lite) deviceIndicatio ns:Diabetes mellitus type 2 in obese Inject 1 each under the skin Once daily. Use to test blood sugar once daily as directed 1 each 03/28/20 23 Active Blood Pressure Monitor kitIndications: Hypertension, unspecified type Use to check blood pressure daily 1 kit 07/23/20 23 Active Ventolin HFA 108 (90 Base) MCG/ACT inhalerIndicati ons:Intermitten t asthma without complication, unspecified asthma severity TAKE 2 PUFFS BY MOUTH EVERY 4 TO 6 HOURS NEEDED 18 g 2 09/10/20 23 Active Spacer/Aero-Hol ding Chambers (OptiChamber Grace) misc 1 each every 4 (four) hours if needed (asthma). 1 each 09/10/20 23 Active Diclofenac Sodium (Voltaren) 1 % gelIndications: Type 2 diabetes mellitus with hyperglycemia, without long-term current use of insulin ([facility]) Apply once a day to the affected foot 100 g 2 09/29/20 23 Active fluticasone (Flonase) 50 MCG/ACT nasal spray USE 1 SPRAY IN EACH NOSTRIL DAILY SHAKE GENTLY 16 g 2 02/10/20 24 Active losartan (Cozaar) 25 MG tabletIndicatio ns:Type 2 diabetes mellitus with hyperglycemia, without long-term current use of insulin (CMS/HCC),Hyper tension, unspecified type Take 1 tablet (25 mg) by mouth in the morning. 30 tablet 02/24/20 24 Active amLODIPine (Norvasc) 5 MG tabletIndicatio ns:Hypertension , unspecified type Take 1 tablet (5 mg) by mouth at bedtime. 30 tablet 02/24/20 24 Active dapagliflozin (Farxiga) 10 MG Take 1 tablet (10 mg) by mouth Once per day. 30 tablet 04/15/20 24 025 Active cholecalciferol (Vitamin D-3) 25 MCG tabletIndicatio ns:Vitamin D deficiency TAKE 1 TABLET BY MOUTH AT BEDTIME 90 tablet 05/20/20 24 Active cetirizine (ZyrTEC) 10 MG tabletIndicatio ns:Seasonal allergic rhinitis due to pollen TAKE 1 TABLET BY MOUTH AT BEDTIME 90 tablet 05/20/20 24 Active Easy Touch Lancets 33G/Twist misc USE DIRECTED TO TEST BLOOD SUGAR ONCE DAILY 100 each 06/07/20 24 Active FREESTYLE LITE test strip USE DIRECTED TO TEST BLOOD SUGAR ONCE DAILY 50 strip 06/07/20 24 Active atorvastatin (Lipitor) 20 MG tablet TAKE 1 TABLET BY MOUTH AT BEDTIME 30 tablet 08/27/20 24 Active Acetaminophen 500 MG capsuleIndicati ons:Acute non intractable tension-type headache Take two tablets as needed for fever or pain every 6 hours 40 capsule 01/19/20 25 Active Acetaminophen 500 MG capsuleIndicati ons:Acute non intractable tension-type headache Take two tablets as needed for fever or pain every 6 hours 40 capsule 07/02/20 24 025 Discontinued(Re order (will not trigger notification to Pharmacy)) Nirmatrelvir&Ri tonavir 300/100 (Paxlovid, 300/100,) 20 x 150 MG & 10 x 100MG tablet therapy packIndications :COVID-19 Take 1 Dose by mouth 2 times daily for 5 days. 10 each 01/19/20 25 025 guaiFENesin (Robitussin) 100 MG/5ML liquidIndicatio ns:COVID-19,Acu te cough Take 10 mL (200 mg) by mouth if needed in the morning, at noon, and at bedtime for cough for up to 10 days. 120 mL 01/19/20 25 025 Active Problems Problem Noted Date Diagnosed Date COVID-19 01/18/2025 Assessment & Plan (01/18/2025 3:15 PM EDT): Pt here with c/o non productive cough x 1 day, no difficulty breating Rapid Covid-19 POSITIVE Plan: Paxlovid, HOLD Lipitor ( pt verbalized understanding) until she completes her treatment with Paxlovid Instructed to come or call if symptoms do not improve or wrosen Herpes labialis 12/28/2024 Type 2 diabetes mellitus, wi thout long-term current use of insulin 03/09/2019 Vitamin D deficiency 02/22/2019 Asthma 11/17/2018 Hypertensive disorder 09/14/2018 Knee pain 08/12/2018 Hyperlipidemia 08/07/2012 Allergic rhinitis 08/07/2012 Gastroesophageal reflux disease 08/07/2012 Encounters Date Type Department Care Team Description 01/18/2025 3:00 PM EDT Office Visit [facility] [address] [place] [phone] Luiz Hector MD Acute cough (Primary Dx); COVID-19; Acute non intractable tension-type headache 01/07/2025 Population Health Risk Score [facility] () Department [address] [place] [phone] Provider, Population Health Generic 12/29/2024 Telephone [facility] [address] [place] [phone] Kelly Clements, JACKIE 12/29/2024 Telephone [facility] [address] [place] [phone] Kelly Clements, JACKIE 12/28/2024 3:15 PM EST Office Visit [facility] [address] [place] [phone] Shekhar Rhodes MD Hypertension, unspecified type (Primary Dx); Type 2 diabetes mellitus with hyperglycemia, without long-term current use of insulin ([facility]); Herpes labialis; Chronic knee pain, unspecified laterality; Encounter for screening mammogram for malignant neoplasm of breast; Encounter for immunization 12/17/2024 Patient Outreach [facility] [address] [place] [address] Name, MD Shekhar Pre-visit Planning ([facility] unable to reach [facility] ) from Last 3 Months Immunizations Name Administration [...] the past 12 months, has t he [employer], gas, oil or water company threatened to [...] Sign Reading Time Taken Comments Blood Pressure 159/81 01/18/2025 2:43 PM EDT Pulse 68 01/18/2025 2:43 PM EDT Temperature 36.7 ??C (98.1 ??F) 01/18/2025 2:43 PM ED T Respiratory Rate 18 01/18/2025 2:43 PM EDT Oxygen Saturation 95% 01/18/2025 2:43 PM EDT Inhaled Oxygen Concentration - - Weight 71.8 kg (158 lb 3.2 oz) 01/18/2025 2:43 P M EDT Height 157.5 cm (5' 2 ) 01/18/2025 2:43 PM EDT Body Mass Index 28.94 01/18/2025 2:43 PM EDT Plan of Treatment Upcoming Encounters Date Type Department Care Team (Late st Contact Info) Description 02/24/2025 11:00 AM EDT Office Visit [facility] [address] [place] [address] Cassius Fu, PAULINA [address] [place] [address] 04/28/2025 9:00 AM EDT Office Visit [facility] [address] [place] [address] Name, MD Shekhar [address] [place] [address] Health Maintenance Due Date Last Done Comments [...] Additional history exists Eye Exam 08/28/2025 08/28/2023, 1111/2022, 08/28/2023, Additional history exists Tobacco Screening 12/28/2025 [...] PharmD Blood Pressure < 140/90 Blood Pressure 159/81(2024 2:43 PM EDT) No Puia, Nadine, PharmD Hemoglobin A1c < 7 Result Component 6.6( 3:22 PM EST) No Puia, Nadine, PharmD Record your blood sugar as directed Result Component Worsening(08/2023 1:29 PM EST) No Puia, Nadine, PharmD Procedures Procedure Name Priority Date/Time Associated Diagnosis Comments POCT INFLUENZA B (ID NOW RAPID MOLECULAR) Routine 01/18/2025 2:55 PM EDT COVID-19 POCT INFLUENZA A (ID NOW RAPID MOLECULAR) Routine 01/18/2025 2:55 PM EDT COVID-19 POCT RAPID COVID ANTIGEN Routine 01/18/2025 2:55 PM EDT COVID-19 XR KNEE 4+ VIEWS LEFT Routine 01/13/2025 9:14 AM EDT Chronic knee pain, unspecified laterality XR KNEE 4+ VIEWS RIGHT Routine 01/13/2025 9:14 AM EDT Chronic knee pain, unspecified laterality LIPID PANEL, STANDARD Routine 01/01/2025 10:15 AM [...] Recently Relevant to Health Maintenance Results * Influenza B (ID NOW Rapid Molecular) (01/18/2025 2:55 PM EDT) [facility] Influenza B Negative Negative, Indeterminate [facility] Swab 01/18/2025 2:55 PM EDT us Luiz Longoria MD POINT OF CARE TEST EN TER/EDIT ORDERABLES Final Result Performing Organization Address [facility]/ZIP Co de Phone Number [facility] [address] [place] [phone] * Influenza A (ID NOW Rapid Molecular) (01/18/2025 2:55 PM EDT) [facility] Influenza A Negative Negative, Indeterminate [facility] Swab 01/18/2025 2:55 PM EDT Luiz Longoria MD POINT OF CARE TEST EN TER/EDIT ORDERABLES Final Result Performing Organization Address City/[facility]/ZIP Co de Phone Number [facility] [address] [place] [phone] * (ABNORMAL) POCT Rapid COVID Ag (01/18/2025 2:55 PM EDT) [facility] Rapid COVID Ag Positive [facility] Swab 01/18/2025 2:55 PM EDT us Luiz Longoria MD POINT OF CARE TEST EN TER/EDIT ORDERABLES Final Result [facility] [address] [place] [address] [phone] * XR Knee 4+ Views Right (01/13/2025 9:14 AM EDT) Anatomical Region Laterality Modality Lower Extremities, Knee Right Radiogra phic Imaging 01/13/2025 9:14 AM EDT Narrative 01/13/2025 10:15 AM EDT ?[facility] ?[address] ?[place] [address] ?XRay Report ? Signed ? Patient: Rehman,Carmen ?MR#: [id number] ?? 285 ? : 1955 ?Acct:[id number] ? Age/Sex: 69 / F ?ADM Date: 01/13/25 ? Loc: HO.HHCX ? Attending Dr: Shekhar Rhodes MD ? Ordering Physician: Shekhar Rhodes MD ?? Date of Service: 01/13/25 ?? Procedure(s): XR knee RT 4V ?? Accession Number(s): [id number] ? cc: Shekhar Rhodes MD ? EXAMINATION: ??XR KNEE 4 OR MORE VIEWS RIGHT ? HISTORY: Chronic pain and problems walking ? COMPARISON: There are no prior studies available for comparison. ? FINDINGS: ? Four views of the right knee are submitted. ??Osseous mineralization is ?? normal. ??There is no fracture or dislocation. ??There is mild narrowing ?? of the patellofemoral compartment. ??The soft tissues are unremarkable. ? XR/XR knee RT 4V ?? IMPRESSION: ? Mild narrowing of the patellofemoral compartment. Otherwise ?? unremarkable examination of the right knee. ? Electronically signed by: ??Giorgio Andrews MD ??01/13/2025 10:12 AM EDT ?? RP ? Dictated By: ?Giorgio Andrews MD ? Signed By: ?<Electronically signed by Giorgio Andrews MD in OV> ?01/13/25 1012 ? DD/ 0914 ? TD/TT: 01/13/25 1000 ? Maintenance Shop Laborer: ? Procedure Note David, Image - 01/13/2025 [facility] [address] [place] [address] XRay Report Signed Patient: Joseph Rehman#: [id number] : 1955cct:[id number] Age/Sex: 69 / FADM Date: 01/13/25 Loc: HO.HHCX Attending Dr: Shekhar Rhodes MD Ordering Physician: Shekhar Rhodes MD Date of Service: 01/13/25 Procedure(s): XR knee RT 4V Accession Number(s): [id number] cc: Shekhar Rhodes MD EXAMINATION: XR KNEE 4 OR MORE VIEWS RIGHT HISTORY: Chronic pain and problems walking COMPARISON: There are no prior studies available for comparison. FINDINGS: Four views of the right knee are submitted. Osseous mineralization is normal. There is no fracture or dislocation. There is mild narrowing of the patellofemoral compartment. The soft tissues are unremarkable. XR/XR knee RT 4V IMPRESSION: Mild narrowing of the patellofemoral compartment. Otherwise unremarkable examination of the right knee. Electronically signed by: Giorgio Andrews MD 01/13/2025 10:12 AM EDT Dictated By: Giorgio Andrews MD Signed By: <Electronically signed by Giorgio Andrews MD in OV> 01/13/25 1012 DD/ 0914 TD/TT: 01/13/25 1000 Maintenance Shop Laborer: Shekhar Rhodes MD IM XR PROCEDURES Edited Result - Final * XR Knee 4+ Views Left (01/13/2025 9:14 AM EDT) Anatomical Region Laterality Modality Lower Extremities, Knee Left [facility] 01/13/2025 9:14 AM EDT Narrative 01/13/2025 10:16 AM EDT ?[facility] ?[address] ?[place] [address] ?XRay Report ? Signed ? Patient: Rehman,Carmen ?MR#: [id number] ?? 285 ? : 1955 ?Acct:[id number] ? Age/Sex: 69 / F ?ADM Date: 03/20/25 ? Loc: HO.HHCX ? Attending Dr: Shekhar Rhodes MD ? Ordering Physician: Shekhar Rhodes MD ?? Date of Service: 01/13/25 ?? Procedure(s): XR knee LT 4V ?? Accession Number(s): [id number] ? cc: Meagan,Shekhar ROSE ? EXAMINATION: ??XR KNEE 4 OR MORE VIEWS LEFT ? HISTORY: Chronic pain and problems walking ? COMPARISON: Comparison is made with the prior examination dated ?? 11/06/2017. ? FINDINGS: ? Four views of the left knee are submitted. ??Osseous mineralization is ?? normal. ??There is no fracture or dislocation. ??There is mild ?? degenerative change of the medial compartment with joint space ?? narrowing and osteophyte formation. ??The soft tissues are unremarkable. ?? There is no joint effusion. ? XR/XR knee LT 4V ?? IMPRESSION: ? Mild osteoarthritis of the medial compartment. ? Electronically signed by: ??Giorgio Andrews MD ??01/13/2025 10:14 AM EDT ? Dictated By: ?Giorgio Andrews MD ? Signed By: ?<Electronically signed by Giorgio Andrews MD in OV> ?01/13/25 1014 ? DD/ 0914 ? TD/TT: 01/13/25 1000 ? Maintenance Shop Laborer: ? Procedure Note David, Image - 01/13/2025 [place] [address] XRay Report Signed Patient: Joseph Rehman#: [id number] : 1955cct:[id number] Age/Sex: 69 / FADM Date: 01/13/25 Loc: HO.HHCX Attending Dr: Shekhar Rhodes MD Ordering Physician: Shekhar Rhodes MD Date of Service: 01/13/25 Procedure(s): XR knee LT 4V Accession Number(s): [id number] cc: Shekhar Rhodes MD EXAMINATION: XR KNEE 4 OR MORE VIEWS LEFT HISTORY: Chronic pain and problems walking COMPARISON: Comparison is made with the prior examination dated 11/06/2017. FINDINGS: Four views of the left knee are submitted. Osseous mineralization is normal. There is no fracture or dislocation. There is mild degenerative change of the medial compartment with joint space narrowing and osteophyte formation. The soft tissues are unremarkable. There is no joint effusion. XR/XR knee LT 4V IMPRESSION: Mild osteoarthritis of the medial compartment. Electronically signed by: Giorgio Andrews MD 01/13/2025 10:14 AM EDT RP Dictated By: Giorgio Andrews MD Signed By: <Electronically signed by Giorgio Andrews MD in OV> 01/13/25 1014 DD/ 0914 TD/TT: 01/13/25 1000 Maintenance Shop Laborer: us Shekhar Rhodes MD IMG XR PROCEDURES Edited Result - Final * (ABNORMAL) Lipid Panel, Standard (01/01/2025 10:15 AM EST) Triglycerides 61 <150 mg/dL [facility] Comment:Desirable Triglyceri de: less than 150 mg/dLBorderline High Triglyceride 150-199 mg/dLHigh Triglyceride: 200-499 mg/dLVery High Triglyceride: greater than or equal to 5OO mg/dL Cholesterol 193 <200 mg/dL [facility] Comment:Desirable Cholestero l: less than 200 mg/dLBorderline High Cholesterol: 200-239 mg/dLHigh Cholesterol: greater than 239 mg/dL LDL Cholesterol Calculated 126(H) <100 mg/dL [facility] Comment:Desirable LDL: less than 100 mg/dLNear Optimal/Above Optimal LDL: 110- 129 mg/dLBorderline High LDL: 130-159 mg/dLHigh LDL: 160-189 mg/dLVery High LDL: greater than or equal to 190 mg/dL HDL Cholesterol 55 >40 mg/dL [facility] Comment:Desirable HDL: great er than 40 mg/dL Note: This HDL assay may give artificially low results in patients with liver disease. Blood Venous blood specimen / Unknown 01/01/2025 10:15 AM EST 01/01/2025 10:15 AM EST us Shekhar Rhodes MD LAB BLOOD ORDERABLES Final Resul t Performing Organization Address City/[facility]/ZIP Co de Phone Number [facility] [address] [place] [address] [phone] * (ABNORMAL) Comprehensive Metabolic Panel (01/01/2025 10:15 AM EST) Sodium 141 135 - 145 mmol/L [facility] Potassium 3.8 3.3 - 5.1 mmol/L [facility] Chloride 108 96 - 108 mmol/L [facility] Carbon Dioxide 25 22 - 29 mmol/L [facility] Anion Gap 12 12 - 20 [facility] Urea Nitrogen (BUN) 16 9 - 16 mg/dL [facility] Creatinine, Serum 0.67 0.5 - 1.4 mg/dL [facility] Estimated Glomerular Filt Rate >60 [facility] Comment:Chronic Kidney Disea se: Estimated GFR < 60 mL/min/1.72f0Malvgv Kidney Disease: Estimated GFR < 15 mL/min/1.73m2 Glucose 153(H) 60 - 115 mg/dL [facility] Calcium 9.4 8.4 - 10.2 mg/dL [facility] Bilirubin, Total 0.5 0.0 - 1.0 mg/dL [facility] Aspartate Amino Transferase 30 5 - 31 U/L [facility] Alanine Aminotransferase 28 0 - 31 U/L [facility] Total Protein 7.7 6.5 - 8.0 g/dL [facility] Albumin Level 4.0 3.5 - 5.0 g/dL [facility] Alkaline Phosphatase 78 39 - 117 U/L [facility] Blood Venous blood specimen / Unknown 01/01/2025 10:15 AM EST 01/01/2025 10:15 AM EST us Shekhar Rhodse MD LAB BLOOD ORDERABLES Final Resul t Performing Organization Address [facility]/ZIP Co de Phone Number [facility] [address] [place] [address] [phone] * Albumin, Random Urine W/Creatinine (01/01/2025 10:13 AM EST) Creatinine, Urine 55.37 mg/dL [facility] Microalbumin Urine <5.0 mg/L [facility] Microalbum Creatinine Ratio Ur TNP <30 ug/mg cr [facility] Comment:Unable to calculate albumin/creatinine ratio due to lowmicroalbumin or creatinine result. Urine (Urine, Random) 01/01/2025 10:13 AM EST 01/01/2025 10:30 AM EST Result Susan Rhodes MD LAB URINE ORDERABLES Final Resul t [facility] [address] [place] [phone] * (ABNORMAL) POCT HGB A1C (12/28/2024 3:22 PM EST) Pathologist [facility] Hemoglobin A1C 6.6(A) 4.0 - 6.0 % QC Media Lot # [id number] Lot# Expiration Date [id number] Blood 12/28/2024 3:22 PM EST Result Susan Rhodes MD POINT [...] [facility] Hepatitis C Antibody Nonreactive Nonreactive [facility] Comment:Antibodies to HCV no t detected; does not exclude early acuteHCV infection. Blood Venous blood specimen / Unknown 05/11/2024 8:27 AM EDT 05/11/2024 11:28 AM EDT Shekhar Name LAB BLOOD ORDERABLES Final Resul t [facility] [address] [place] [address] [phone] * Mammography Report 1 (05/29/2022 12:18 PM EDT) Anatomical Region Laterality Modality Breast Bilateral Mammography 05/29/2022 12:1 8 PM EDT Narrative 05/30/2022 1:27 PM EDT Refer to the Notes tab for result details [facility] Procedure: Mammography Report 1 Procedure Note Provider, Anthony, - 01/19/2023 Refer to the Notes tab for result details [facility] Procedure: Mammography Report 1 Shekhar Rhodes MD IMG BI PROCEDURES Final Result * Hm Colonoscopy (12/14/2019 3:35 PM EST) Colonoscopy Normal Normal Narrative Maria Eugenia Anu - 12/14/2019 3:35 PM EST Recommend 3 year follow up Historical Provider HEALTH MAINTENANCE Final Result from Last 3 Months or Most Recently Relevant to Health Maintenance Insurance MEDICARE [facility] STANDARD DENTAL-[facility] MEDICAID STAND ADULT Care Teams Legal Word Processor Relationship Specialty Start Date End Date Name, MD Shekhar [address] [place] [address] PCP - General Family Medicine 08/12/18 Nadine Almazan, KimberlyD [address] [place] [address] Pharmacist Internal Medicine 10/30/21
--- OUTSIDE RECORDS SUMMARY | 2025-02-08 17:35 | XMS_ITS | Encounter Summary ---
Author Organization [employer] Address [address] [place] [address] Care Team Providers Care Transmission Tester Name Role Phone Name, Shekhar ROSE Primary Care Provider [phone] Nadine Almazan PharmD Unavailable [phone] Reason for Visit * Reason Comments Med Refill Encounter Details Date Type Department Care Team ([facility] Contact Info) Description 06/29/2024 Refill [facility] [address] [place], [place] [phone] Bryant Garcia MD [address] [place], [place] [phone] Social History Tobacco Use Types Packs/Day Years [...] Description 02/24/2025 11:00 AM EDT Office Visit [facility] [address] [place] [address] Cassius Fu, PAULINA [address] [place] [address] 04/28/2025 9:00 AM EDT Office Visit [facility] [address] [place] [address] Name, MD Shekhar [address] [place] [address] documented as of this encounter Goals Goal [...] documented as of this encounter Care Teams Transmission Tester Relationship Specialty Start Date End Date Name, MD Shekhar [address] [place] [address] PCP - General Family Medicine 08/12/18 Nadine Almazan PharmD [address] [place] [address] Pharmacist Internal Medicine 10/30/21 documented as of this encounter
--- OUTSIDE RECORDS SUMMARY | 2025-02-08 17:35 | XMS_ITS | Encounter Summary ---
Author Organization [employer] Address [address] [place] [address] Care Team Providers Care Doctor Of Podiatry Name Role Phone Name, Shekhar ROSE Primary Care Provider [phone] Nadine Almazan PharmD Unavailable [phone] Reason for Visit * Reason Comments Med Refill Encounter Details Date Type Department Care Team (Late Contact Info) Description 06/12/2023 Refill [facility] [address] [place] [phone] Sherri Munoz FNP Social History Tobacco Use [...] Description 02/24/2025 11:00 AM EDT Office Visit [facility] [address] [place] [address] Cassius Fu, PAULINA [address] [place] [address] 04/28/2025 9:00 AM EDT Office Visit [facility] [address] [place] [phone] Name, MD Shekhar [address] [place] [address] documented as of this encounter Goals Goal Patient Goal Type Associated Problems Recent Progress Patient-Stated? Author Record your blood pressure periodically, as directed Blood Pressure Worsening(09/26 1:29 PM EST) No Nadine Almazan, PharmD documented as of this encounter Visit Diagnoses Not on filedocumented in this encounter Care Teams Doctor Of Podiatry Relationship Specialty Start Date End Date Name, MD Shekhar [address] [place] [address] PCP - General Family Medicine 08/12/18 Nadine Almazan, PharmD [address] [place] [address] Pharmacist Internal Medicine 10/30/21 documented as of this encounter
== END 2025-02-08 14:24 | disposition home or self-care (01) ==
LOC: HO.MAMMO 14:23
PROVIDERS: PCP Internal Medicine Geriatric Medicine; Visit Provider Internal Medicine Geriatric Medicine
DX: Z12.31 Encounter for screening mammogram for malignant neoplasm of breast (principal)
CPT/HCPCS: 77063; 77067

== ENCOUNTER → 2025-02-08 14:30 | Outpatient (BNV) | payer MEDICARE, MEDICAID, SELFPAY | PROVIDERS: PCP Internal Medicine Geriatric Medicine; Visit Provider Internal Medicine | DX: Z12.31 Encounter for screening mammogram for malignant neoplasm of breast (principal) | CPT/HCPCS: 77063; 77067 ==